=== PATIENT | male | born 1965 | race Caucasian/White ===

== ENCOUNTER 2024-01-26 09:04 | Outpatient (AMB) | payer OTHER, SELFPAY ==
--- NOTE | 2024-01-26 09:05 | A.OFFPC_ITS ---
Vital Signs 01/26/24 09:06 Height 5 ft 6 in Weight 284 lb 6 oz BMI 45.9 BP 160/90 H Blood Pressure Location Rt brachial Position Sitting Respiration 13 Pulse 81 Pulse Source Pulse Oximeter Temp 97.5 F Temp Source Temporal Artery Scan Pulse Oximetry (%) 99 Oxygen Delivery Method Room Air Intake Visit Reasons: New patient-requesting physical Certified Nurses' Aide Required: No Accompanied by: Self / Same As Patient Allergies No Known Allergies Allergy (Verified 01/26/24 09:35) Medication List - Last Reconciled 01/26/24 by Vin Hernandez CNP atorvastatin 80 mg PO DAILY ezetimibe 10 mg PO DAILY hydrochlorothiazide 12.5 mg PO DAILY lisinopril 40 mg PO DAILY meloxicam 15 mg PO DAILY Tobacco use date assessed: 01/26/24 Dental Screening Dental Screen Date: 01/26/24 Did you have a dental visit in the last 12 months?: Yes Did you have a dental problem in the last 6 months where you did not have access to dental care?: No Was dental information given to patient?: Patient has dentist HPI HPI Comments History of Present Illness Details New patient Prior PCP:?Dr Moisés Marrero () Last office visit/CPE: About 2.5 years Acute issue(s): Hypertension -He was on HCTZ 12mg daily and lisinopr il 40mg daily until 2 years ago when he ran out of the medications HLD -He was on ezetimibe 10mg daily and ator vastatin 80mg daily until the last 2 years after he ran out of the medications. He reports severe pain to his BLE while he was on atorvastatin Anxiety -He is not on medication. He has never b een on psychotropic medication Reports onset of panic attacks in the past 2 years; he has never been evaluated or diagnosed. He notes that he gets panic in crowds or closed spaces Chronic right knee pain -Was on meloxicam 15mg daily until his p rescription ran out 2 weeks ago. He notes pain to the right knee with walking He reports history of low testosterone levels for which was monitored and treated with testosterone injections by his former PCP He notes that he started physical exercise this week and plans on exercising at least 3 days weekly. He notes that his diet is not good, he eats pasta, red meat, crap. Hes states that his last A1c was done about 2.5 years ago PMHx: HTN, HLD, anxiety, chronic left knee pain, low testosterone SurgHx: Left total knee replacement 3 years ago FHx: Brother: Prostate cancer SocHx: Nonsmoker. Drinks 4- 6 beers weekly. No recreational drugs. 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 1. Little interest or pleasure in doing things: not at all 2. Feeling down, depressed, or hopeless: not at all 3. Trouble falling or staying asleep, or sleeping too much: not at all 4. Feeling tired or having little energy: not at all 5. Poor appetite or overeating: several days 6. Feeling bad about yourself - or that you are a failure or have let yourself or your family down: not at all 7. Trouble concentrating on things, such as reading the newspaper or watching television: not at all 8. Moving or speaking so slowly that other people could have noticed. Or the opposite - being so fidgety or restless that you have been moving around a lot more than usual: not at all 9. Thoughts that you would be better off or of hurting yourself in some way: not at all Total score: 1 Depression Screening Interpretation: Negative Depression Screening Done: Yes 26423 - PHQ-9 Billing: Yes Source: Developed by Drs. Chato Rose, Darcie Edmond, Henri Luke and colleagues, with an educational hodan from [employer] Thrive Questionnaire Date Thrive assessed: 01/26/24 I am a: Patient What is your living situation today?: I have a steady place to live Within the past 12 months, did the food you bought not last and you didn't have the money to get more?: Never true Within the past 12 months, did you worry whether your food would run out before you got money to buy more?: Never true Do you have trouble paying for medicines?: No Do you have trouble getting transportation to medical appointments?: No Do you have trouble paying your heating and electricity bill?: No Do you have trouble taking care of your child, family member or friend?: No Do you have trouble with day-to-day activities such as bathing, preparing meals, shopping, managing finances, etc.?: No Are you currently unemployed and looking for a job?: No Are you interested in more education?: No Please select the resources that you would like help with: None Currently or been in a relationship where the following occur: no concerns reported THRIVE Score: 0 AUDIT C Alcohol Use Questionnaire (AUDIT-C) 1. How often do you have a drink containing alcohol?: 4 or more times a week 2. How many drinks containing alcohol do you have on a typical day when you are drinking?: 1 or 2 3. How often do you have six or more drinks on one occasion?: Never Total Score: 4 JANICE-7 AMB Questionnaire JANICE-7 Date JANICE - 7 assessed: 01/26/24 Feeling nervous, anxious, or on edge: 1 = Several days Not being able to stop or control worryin = Not at all Worrying too much about different things: 0 = Not at all Trouble relaxin = Not at all Being so restless that it is hard to sit still: 0 = Not at all Becoming easily annoyed or irritable: 0 = Not at all Feeling afraid as if something awful might happen: 0 = Not at all Total JANICE-7 score (0-4 normal; 5-9 mild; 10-14 moderate; 15-21 severe): 1 Source: Developed by Drs. Chato Rose, Darcie Edmond, Henri Luke and colleagues, with an educational hodan from [employer] JANICE-7 Assessment Billing JANICE-7 Assessment Tool: JANICE-7 Assessment 41591 Review of Systems Const Details: Const Denies chills, Denies fatigue, Denies fever(s), Denies headache(s) and Denies weakness ENT Denies dizziness and Denies headache(s) Card Denies chest pain, Denies lightheadedness, Denies dyspnea and Denies other (Palpitations) Resp Denies cough, Denies dyspnea, Denies wheezing and Denies other ( shortness of breath) GI Denies abdominal pain, Denies melena, Denies hematochezia, Denies change in bowel habits, Denies dyspepsia and Denies nausea Denies hematuria and Denies dysuria Musc Reports chronic left knee pain, Denies abnormal gait, Denies numbness and Denies tingling Skin/Breast Denies rash, Denies unusual bruising and Denies wounds Neuro Denies abnormal gait, Denies dizziness, Denies headache(s), Denies memory loss, Denies numbness, Denies Sensory deficit (Neuro), Denies tingling and Denies weakness Psych Denies anxiety, Denies depression, Denies memory loss Endo Denies cold intolerance, Denies fatigue, Denies heat intolerance, Denies polydipsia and Denies polyuria Aller/Immun Denies wheezing Physical exam (Primary Care) Vital Signs: Last Vital Signs Temp 97.5 F 01/26/24 09:06 Pulse 81 01/26/24 09:06 Resp 13 01/26/24 09:06 BP 160/90 H 01/26/24 09:06 Pulse Ox 99 01/26/24 09:06 Oxygen Delivery Method Room Air 01/26/24 09:06 BMI result Body Mass Index 45.9 Tobacco/Smoking Status: Tobacco use Status Tobacco use date assessed 01/26/24 01/26/24 09:12 Patient Tobacco Use Status Never used Tobacco 01/26/24 09:12 e-Cigarette/Vaping Use Never Used 01/26/24 09:12 PHQ-9: PHQ-9 Score PHQ-9: Total score 1 01/26/24 09:54 Depression Screening Interpretation: Negative Thrive Assessment: Date of Thrive Assessment Date Thrive assessed 01/26/24 01/26/24 09:20 Currently or been in a relationship where the following occur: no concerns reported Const Other: General: no acute distress and well developed Nutritional Appearance: well nourished Orientation/consciousness: patient oriented x3 [facility] Head: Yes normocephalic and Yes atraumatic Eyes General: appearance normal, both eyes and all related structures Pupils: Equal, round and reactive pupils present EOM: EOMs intact bilaterally Resp Effort & Inspection: normal respiratory effort Auscultation: clear to auscultation bilaterally Cardio Rate: regular rate Rhythm: regular rhythm Heart sounds: S1 normal heart sound present, S2 normal heart sound present, no gallops, no murmurs and no rubs GI Palpation (GI): No Abdominal aortic bruit present, Soft to palpation, nontender, No hepatosplenomegaly present and No Rebound tenderness present Auscultation: normal bowel sounds General: Yes no CVA tenderness Back/Spine/Pelvis Back: no CVA tenderness Cervical Spine: cervical ROM normal and No Cervical spine tenderness Thoracic/Lumbar Spine: thoraco-lumbar ROM normal, No pain with thoraco-lumbar ROM, No thoracic spinal tenderness and No lumbar spinal tenderness Extrem General: Yes normal to inspection, No edema and No calf tenderness Skin General: warm and dry. Normal skin color. Normal skin turgor Neuro General: patient oriented x3, gait normal and no focal neuro deficit Cranial nerves: Yes Equal, round and reactive pupils present Cognition (Neuro): normal cognition Gait exam (Neuro): Normal gait present Sensory Exam: No Sensory deficit (Neuro) Psych Appearance: grossly normal Affect: normal affect Attitude: cooperative Thought process: Normal thought process present Assessment and Plan Assessment & Plan (1) High blood pressure: Code(s): I10 - Essential (primary) hypertension Plan: Resting blood pressure is 160/90, above goal of less than 140/90 Will start lisinopril 20 mg daily. Take as prescribed Low-sodium diet and routine exercise encouraged Follow-up in 1 week with the nurse for blood pressure check Follow-up with PCP in 2 weeks Return sooner with symptoms or concerns Verbalized understanding and agreed with treatment plan (2) Hyperlipidemia: Code(s): E78.5 - Hyperlipidemia, unspecified Plan: He has not gotten blood work done in the past 2 and half years Will check lipid panel and make changes as needed Advised to limit foods high in saturated fat and avoid foods high in trans fat Routine exercise encouraged Verbalized understanding and agreed with the plan (3) Anxiety: Code(s): F41.9 - Anxiety disorder, unspecified Plan: Reports onset of panic attacks in the past 2 years; he has never been evaluated or diagnosed. He notes that he gets panic in crowds or closed spaces PHQ-9 and JANICE-7 scores are normal Will trial hydroxyzine 25 mg 3 times daily. Take as prescribed Routine exercise encouraged Follow-up with worsening or new symptoms Verbalized understanding and agreed with treatment plan (4) Chronic pain of right knee: Code(s): M25.561 - Pain in right knee; G89.29 - Other chronic pain Plan: Reports chronic right knee pain for which he took naproxen until he ran out 2 weeks ago Naproxen 500 mg twice daily as needed ordered. Take as prescribed in with food Follow-up with worsening or new symptoms Verbalized understanding and agreed with treatment plan (5) Morbid obesity with BMI of 45.0-49.9, adult: Code(s): E66.01 - Morbid (severe) obesity due to excess calories; Z68.42 - Body mass index [BMI] 45.0-49.9, adult Plan: He currently weighs 284 lb, BMI is 45.9 He started physical exercise this week and plans on exercising at least 3 days weekly He declines referral to online merchandiser or weight management at this time. He will continue physical exercise and start making dietary changes Healthy diet and routine exercise encouraged Follow-up with symptoms or concerns Verbalized understanding and agreed with the plan (6) Low testosterone: Code(s): R79.89 - Other specified abnormal findings of blood chemistry Plan: He reports history of low testosterone levels which was monitored and treated by his former PCP Will check testosterone level and make changes as needed (7) Laboratory tests ordered as part of a complete physical exam (CPE): Code(s): Z00.00 - Encounter for general adult medical examination without abnormal findings Plan: Fasting labs ordered in preparation of a complete physical exam. Advised to fast for at least 10 hours before getting labs drawn. May drink water Verbalized understanding and agreed with treatment plan. Orders: Orders Complete Blood Count Auto Diff Today Z00.00 - Encounter for general adult medical examination without abnormal findings Lipid Panel Today Z00.00 - Encounter for general adult medical examination without abnormal findings TSH reflex Free T4 Today Z00.00 - Encounter for general adult medical examination without abnormal findings UA CC w/rflx Micro + Cult Today Z00.00 - Encounter for general adult medical examination without abnormal findings Comprehensive [place]. Panel Fast Today Z00.00 - Encounter for general adult medical examination without abnormal findings PSA, Ultra Sensitive Today Z00.00 - Encounter for general adult medical examination without abnormal findings Testosterone, Free/Total Today R79.89 - Other specified abnormal findings of blood chemistry Medications: New naproxen 500 mg PO BID PRN 60 tabs 3RF pain hydroxyzine HCl 25 mg PO TID PRN 90 tabs 1RF anxiety 30 days lisinopril 20 mg PO DAILY 30 tabs 3RF 30 days Coding Level of Care Code New Pt Level 4 (23857) Diagnoses High blood pressure I10 Hyperlipidemia E78.5 Anxiety F41.9 Chronic pain of right knee M25.561; G89.29 Morbid obesity with BMI of 45.0-49.9, adult E66.01; Z68.42 Low testosterone R79.89 Laboratory tests ordered as part of a complete physical exam (CPE) Z00.00 Additional Codes JANICE-7 Assessment Billing - JANICE-7 Assessment Tool: JANICE-7 Assessment [id number] ([id number])
[2024-01-26 09:06] VITALS: BP 160/90; PULSE 81; RESP 13; TEMP 36.4; O2SAT 99; BMI 45.9
== END 2024-01-26 10:14 | disposition home or self-care (01) ==
PROVIDERS: PCP Nurse Practitioner Family; Visit Provider Nurse Practitioner Family
DX: I10 Essential (primary) hypertension (principal); E78.5 Hyperlipidemia, unspecified; E66.01 Morbid (severe) obesity due to excess calories; Z68.42 Body mass index [BMI] 45.0-49.9, adult; F41.9 Anxiety disorder, unspecified; M25.561 Pain in right knee; G89.29 Other chronic pain; R79.89 Other specified abnormal findings of blood chemistry
CPT/HCPCS: 96127; 99204

== ENCOUNTER 2024-01-26 10:14 | Outpatient (REF) | payer OTHER, SELFPAY ==
[2024-01-26 15:08] LABS: MANUAL DIFF FLAG NO
[2024-01-26 15:19] LABS: Basophils Percent Auto 0.3 % (0-2); Eosinophils Absolute Auto 0.1 X10*3/uL (0.0-0.4); Eosinophils Percent Auto 0.8 % (0-4); Hematocrit 49.1 % (42.0-52.0); Hemoglobin 16.9 g/dl (14.0-18.0); Imm Gran Abs Auto 0.02 X10*3/uL (0.00-0.03); Imm Gran Pct Auto 0.3 % (0.0-0.4); Lymphocytes Absolute Auto 1.5 X10*3/uL (1.2-4.9); Lymphocytes Percent Auto 22.7 % (20-40); Mean Corpuscular HGB Conc 34.4 g/dl (31.0-36.0); Mean Corpuscular Hemoglobin 29.1 pg (27.0-33.0); Mean Corpuscular Volume 84.7 fL (80.0-98.0); Monocytes Absolute Auto 0.5 X10*3/uL (0.1-1.2); Monocytes Percent Auto 7.8 % (2-11); Neutrophils Absolute Auto 4.5 x10*3/uL (2.0-8.3); Neutrophils Percent Auto 68.1 % (45-73); Platelet Count 316 X10*3/uL (160-400); White Blood Count 6.7 X10*3/uL (4.8-10.8)
[2024-01-26 15:22] LABS: Appearance Urine Clear; Color Urine Yellow; Glucose Urine UA Negative (Negative); Leukocyte Esterase Urine Trace (Negative); Nitrite Urine Negative (Negative); UMIC TRIGGER UACC YES; Urine Blood Small (1+) (Negative); Urine Ketones Negative (Negative); Urine Protein Negative (Neg-Trace)
[2024-01-26 15:27] LABS: Bacteria Urine None Seen (None Seen); Hyaline Casts Urine 0-2 /LPF (0-2); Squamous Epithelial Cell Urine 0-2 /HPF (0-2); WBC Urine 0-5 /HPF (0-5)
[2024-01-26 15:58] LABS: Alanine Aminotransferase 25 U/L (0-40); Albumin Level 4.4 g/dL (3.5-5.0); Alkaline Phosphatase 89 U/L (39-117); Anion Gap 11 (12-20); Aspartate Amino Transferase 19 U/L (5-37); Bilirubin Total 0.6 mg/dL (0.0-1.0); Blood Urea Nitrogen 13 mg/dL (9-16); Calcium 9.6 mg/dL (8.4-10.2); Carbon Dioxide 28 mmol/L (22-29); Chloride 105 mmol/L (96-108); Cholesterol 239 mg/dL (<200); Estimated Glomerular Filt Rate > 60; Glucose Fasting 81 mg/dL (60-99); HDL Cholesterol 40 mg/dL (>40); LDL Cholesterol Calculated 171 mg/dL (<100); Potassium 4.1 mmol/L (3.3-5.1); Sodium 140 mmol/L (135-145); Total Protein 7.4 g/dL (6.5-8.0); Triglycerides 141 mg/dL (<150)
[2024-01-26 16:06] LABS: TSH reflex Free T4 1.25 uIU/mL (0.32-4.0)
[2024-02-02 12:38] LABS: Testosterone, Free 68.3 pg/mL (35.0-155.0); Testosterone, Total 352 ng/dL (250-1100)
== END 2024-01-26 10:15 | disposition home or self-care (01) ==
LOC: HO.WFDLDS 10:14
PROVIDERS: Visit Provider Nurse Practitioner Family
DX: Z00.00 Encounter for general adult medical examination without abnormal findings (principal); Z12.5 Encounter for screening for malignant neoplasm of prostate; R79.89 Other specified abnormal findings of blood chemistry
CPT/HCPCS: 36415; 80053; 80061; 81001; 84153; 84402; 84403; 84443; 85025

== ENCOUNTER 2024-02-12 14:33 | Outpatient (AMB) | payer OTHER, SELFPAY ==
--- NOTE | 2024-02-12 14:42 | A.OFFPC_ITS ---
Vital Signs 02/12/24 14:47 02/12/24 15:08 Height 5 ft 6 in Weight 288 lb BMI 46.5 BP 164/80 H 160/90 H Blood Pressure Location Rt brachial Rt brachial Position Sitting Sitting Respiration 13 Pulse 78 64 Pulse Source Pulse Oximeter Auscultation Temp 97.4 F Temp Source Temporal Artery Scan Pulse Oximetry (%) 98 Oxygen Delivery Method Room Air Intake Visit Reasons: 2 week follow up [employer] Director Required: No Accompanied by: Self / Same As Patient Allergies No Known Allergies Allergy (Verified 02/12/24 15:04) Medication List - Last Reconciled 02/12/24 by Vin Hernandez CNP hydroxyzine HCl 25 mg PO TID PRN 30 days lisinopril 40 mg PO DAILY 30 days naproxen 500 mg PO BID PRN Tobacco use date assessed: 01/26/24 Dental Screening Dental Screen Date: 02/12/24 Did you have a dental visit in the last 12 months?: Yes Did you have a dental problem in the last 6 months where you did not have access to dental care?: No Was dental information given to patient?: Patient has dentist HPI HPI Comments History of Present Illness Details 58-year-old male presents for hypertensi on, anxiety, and review recent blood work follow-up He established care about 2 weeks ago. He was started on lisinopril 20 mg daily (later increased to 40 mg daily), hydroxyzine 25 mg t.i.d. p.r.n., and naproxen 500 mg b.i.d. 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 1. Little interest or pleasure in doing things: not at all 2. Feeling down, depressed, or hopeless: not at all 3. Trouble falling or staying asleep, or sleeping too much: not at all 4. Feeling tired or having little energy: not at all 5. Poor appetite or overeating: several days 6. Feeling bad about yourself - or that you are a failure or have let yourself or your family down: not at all 7. Trouble concentrating on things, such as reading the newspaper or watching television: not at all 8. Moving or speaking so slowly that other people could have noticed. Or the opposite - being so fidgety or restless that you have been moving around a lot more than usual: not at all 9. Thoughts that you would be better off or of hurting yourself in some way: not at all Total score: 1 Depression Screening Interpretation: Negative Depression Screening Done: Yes 45758 - PHQ-9 Billing: Yes Source: Developed by Drs. Chato Rose, Darcie Edmond, Henri Luke and colleagues, with an educational hodan from [employer] E[employer]. Thrive Questionnaire Date Thrive assessed: 01/26/24 JANICE-7 AMB Questionnaire JANICE-7 Date JANICE - 7 assessed: 02/12/24 Feeling nervous, anxious, or on edge: 0 = Not at all Not being able to stop or control worryin = Not at all Worrying too much about different things: 0 = Not at all Trouble relaxin = Not at all Being so restless that it is hard to sit still: 0 = Not at all Becoming easily annoyed or irritable: 0 = Not at all Feeling afraid as if something awful might happen: 0 = Not at all Total JANCIE-7 score (0-4 normal; 5-9 mild; 10-14 moderate; 15-21 severe): 0 Source: Developed by Drs. Chato Rose, Henri Booth and colleagues, with an educational hodan from [employer] [employer]. JANICE-7 Assessment Billing JANICE-7 Assessment Tool: JANICE-7 Assessment 25391 Review of Systems Const Details: Const Denies chills, Denies fatigue, Denies fever(s), Denies headache(s) and Denies weakness ENT Denies dizziness and Denies headache(s) Card Denies chest pain, Denies lightheadedness, Denies dyspnea and Denies other (Palpitations) Resp Denies cough, Denies dyspnea, Denies wheezing and Denies other ( shortness of breath) GI Denies abdominal pain, Denies melena, Denies hematochezia, Denies change in bowel habits, Denies dyspepsia and Denies nausea Denies hematuria and Denies dysuria Musc Denies abnormal gait, Denies myalgias, Denies arthralgias, Denies numbness and Denies tingling Skin/Breast Denies rash, Denies unusual bruising and Denies wounds Neuro Denies abnormal gait, Denies dizziness, Denies headache(s), Denies memory loss, Denies numbness, Denies Sensory deficit (Neuro), Denies tingling and Denies weakness Psych Denies anxiety, Denies depression, Denies memory loss Endo Denies cold intolerance, Denies fatigue, Denies heat intolerance, Denies polydipsia and Denies polyuria Aller/Immun Denies wheezing Physical exam (Primary Care) Tobacco/Smoking Status: Tobacco use Status Tobacco use date assessed 01/26/24 02/12/24 14:42 Patient Tobacco Use Status Never used Tobacco 02/12/24 14:42 e-Cigarette/Vaping Use Never Used 02/12/24 14:42 Depression Screening Interpretation: Negative Thrive Assessment: Date of Thrive Assessment Date Thrive assessed 01/26/24 02/12/24 14:42 Const Other: General: no acute distress and well developed Nutritional Appearance: well nourished Orientation/consciousness: patient oriented x3 [facility] Head: Yes normocephalic and Yes atraumatic Eyes General: appearance normal, both eyes and all related structures Pupils: Equal, round and reactive pupils present EOM: EOMs intact bilaterally Resp Effort & Inspection: normal respiratory effort Auscultation: clear to auscultation bilaterally Cardio Rate: regular rate Rhythm: regular rhythm Heart sounds: S1 normal heart sound present, S2 normal heart sound present, no gallops, no murmurs and no rubs GI Palpation (GI): No Abdominal aortic bruit present, Soft to palpation, nontender, No hepatosplenomegaly present and No Rebound tenderness present Auscultation: normal bowel sounds General: Yes no CVA tenderness Back/Spine/Pelvis Back: no CVA tenderness Cervical Spine: cervical ROM normal and No Cervical spine tenderness Thoracic/Lumbar Spine: thoraco-lumbar ROM normal, No pain with thoraco-lumbar ROM, No thoracic spinal tenderness and No lumbar spinal tenderness Extrem General: Yes normal to inspection, No edema and No calf tenderness Skin General: warm and dry. Normal skin color. Normal skin turgor Neuro General: patient oriented x3, gait normal and no focal neuro deficit Cranial nerves: Yes Equal, round and reactive pupils present Cognition (Neuro): normal cognition Gait exam (Neuro): Normal gait present Sensory Exam: No Sensory deficit (Neuro) Psych Appearance: grossly normal Affect: normal affect Attitude: cooperative Thought process: Normal thought process present Assessment and Plan Assessment & Plan (1) High blood pressure: Code(s): I10 - Essential (primary) hypertension Plan: Resting blood pressure is 160/90, above goal of less than 140/90 Will start amlodipine 2.5 mg daily. Take as prescribed Continue to take lisinopril 40 mg daily Low-sodium diet encouraged Follow-up in 2 weeks with the nurse for blood pressure check and with PCP in 3 weeks Return sooner with symptoms or concerns Verbalized understanding and agreed with treatment plan (2) Anxiety: Code(s): F41.9 - Anxiety disorder, unspecified Plan: Reports significant improvement on current treatment regimen PHQ-9 and JANICE-7 scores are normal Continue to take hydroxyzine as prescribed Routine exercise encouraged Follow-up with symptoms or concerns Verbalized understanding and agreed with the treatment plan (3) Hyperlipidemia: Code(s): E78.5 - Hyperlipidemia, unspecified Plan: Recent labs/urinalysis reviewed with the patient Unremarkable findings except for elevated cholesterol and LDL, and low HDL, 239, 171, and 40 respectively He does not want medication treatment at this time. He notes he had adverse re action to atorvastatin He will try diet and exercise before considering medications Advised to limit foods high in saturated fat and avoid foods high in trans fat Routine exercise encouraged Will recheck lipid panel in 3 months Verbalized understanding and agreed with treatment plan Medications: New amlodipine 2.5 mg PO DAILY 30 days 30 tabs 3RF Coding Level of Care Code Est Pt Level 3 (31880) Diagnoses High blood pressure I10 Anxiety F41.9 Hyperlipidemia E78.5 Additional Codes JANICE-7 Assessment Billing - JANICE-7 Assessment Tool: JANICE-7 Assessment [id number] ([id number])
[2024-02-12 14:47] VITALS: BP 164/80; PULSE 78; RESP 13; TEMP 36.3; O2SAT 98; BMI 46.5
[2024-02-12 15:08] VITALS: BP 160/90; PULSE 64
== END 2024-02-12 15:42 | disposition home or self-care (01) ==
PROVIDERS: PCP Nurse Practitioner Family; Visit Provider Nurse Practitioner Family
DX: I10 Essential (primary) hypertension (principal); F41.9 Anxiety disorder, unspecified; E78.5 Hyperlipidemia, unspecified
CPT/HCPCS: 99213

== ENCOUNTER 2024-03-18 16:53 | Outpatient (AMB) | payer OTHER, SELFPAY ==
--- NOTE | 2024-03-18 16:57 | MHC.PC.OV ---
Vital Signs 03/18/24 17:00 Height 5 ft 6 in Weight 286 lb 4 oz BMI 46.2 BP 138/78 Blood Pressure Location Rt brachial Position Sitting Respiration 13 Pulse 75 Pulse Source Pulse Oximeter Temp 97.5 F Temp Source Temporal Artery Scan Pulse Oximetry (%) 98 Oxygen Delivery Method Room Air Intake Visit Reasons: blood pressure check Host/Hostess Required: No Accompanied by: Self / Same As Patient Allergies Seasonal Allergies Allergy (Severe, Verified 03/18/24 17:20) Itchy Eyes Medication List - Last Reconciled 03/18/24 by Vin Hernandez CNP amlodipine 2.5 mg PO DAILY 30 days hydroxyzine HCl 25 mg PO TID PRN 30 days lisinopril 40 mg PO DAILY 30 days naproxen 500 mg PO BID PRN Tobacco use date assessed: 01/26/24 Dental Screening Dental Screen Date: 02/12/24 HPI HPI Comments History of Present Illness Details 58-year-old male present for diabetes follow-up He admits to taking his medications as prescribed without adverse reactions He reports control anxiety symptoms and notes that he has not required to take hydroxyzine for the past 3 weeks He notes that meloxicam was more effective than naproxen for his right knee pain. 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 Chato Rose, Darcie Edmond, Henri Luke and colleagues, with an educational hodan from [employer]. Review of Systems Const Details: Const Denies chills, Denies fatigue, Denies fever(s), Denies headache(s) and Denies weakness ENT Denies dizziness and Denies headache(s) Card Denies chest pain, Denies lightheadedness, Denies dyspnea and Denies other (Palpitations) Resp Denies cough, Denies dyspnea, Denies wheezing and Denies other ( shortness of breath) GI Denies abdominal pain, Denies melena, Denies hematochezia, Denies change in bowel habits, Denies dyspepsia and Denies nausea Denies hematuria and Denies dysuria Musc Denies abnormal gait, Denies myalgias, Denies arthralgias, Denies numbness and Denies tingling Skin/Breast Denies rash, Denies unusual bruising and Denies wounds Neuro Denies abnormal gait, Denies dizziness, Denies headache(s), Denies memory loss, Denies numbness, Denies Sensory deficit (Neuro), Denies tingling and Denies weakness Psych Denies anxiety, Denies depression, Denies memory loss Endo Denies cold intolerance, Denies fatigue, Denies heat intolerance, Denies polydipsia and Denies polyuria Aller/Immun Denies wheezing Physical exam (Primary Care) Vital Signs: Last Vital Signs Temp 97.5 F 03/18/24 17:00 Pulse 75 03/18/24 17:00 Resp 13 03/18/24 17:00 BP 138/78 03/18/24 17:00 Pulse Ox 98 03/18/24 17:00 Oxygen Delivery Method Room Air 03/18/24 17:00 BMI result Body Mass Index 46.2 Tobacco/Smoking Status: Tobacco use Status Tobacco use date assessed 01/26/24 03/18/24 16:58 Patient Tobacco Use Status Never used Tobacco 03/18/24 16:58 e-Cigarette/Vaping Use Never Used 03/18/24 16:58 Thrive Assessment: Date of Thrive Assessment Date Thrive assessed 01/26/24 03/18/24 16:58 Const Other: General: no acute distress and well developed Nutritional Appearance: well nourished Orientation/consciousness: patient oriented x3 HENMT Head: Yes normocephalic and Yes atraumatic Eyes General: appearance normal, both eyes and all related structures Pupils: Equal, round and reactive pupils present EOM: EOMs intact bilaterally Resp Effort & Inspection: normal respiratory effort Auscultation: clear to auscultation bilaterally Cardio Rate: regular rate Rhythm: regular rhythm Heart sounds: S1 normal heart sound present, S2 normal heart sound present, no gallops, no murmurs and no rubs GI Palpation (GI): No Abdominal aortic bruit present, Soft to palpation, nontender, No hepatosplenomegaly present and No Rebound tenderness present Auscultation: normal bowel sounds General: Yes no CVA tenderness Back/Spine/Pelvis Back: no CVA tenderness Cervical Spine: cervical ROM normal and No Cervical spine tenderness Thoracic/Lumbar Spine: thoraco-lumbar ROM normal, No pain with thoraco-lumbar ROM, No thoracic spinal tenderness and No lumbar spinal tenderness Extrem General: Yes normal to inspection, No edema and No calf tenderness Skin General: warm and dry. Normal skin color. Normal skin turgor Neuro General: patient oriented x3, gait normal and no focal neuro deficit Cranial nerves: Yes Equal, round and reactive pupils present Cognition (Neuro): normal cognition Gait exam (Neuro): Normal gait present Sensory Exam: No Sensory deficit (Neuro) Psych Appearance: grossly normal Affect: normal affect Attitude: cooperative Thought process: Normal thought process present Assessment and Plan Assessment & Plan (1) High blood pressure: Code(s): I10 - Essential (primary) hypertension Plan: Resting blood pressure is 138/78, within goal of less than 140/90 Will increase amlodipine to 5 mg daily. Take as prescribed Continue to take lisinopril as prescribed Low-sodium diet and routine exercise encouraged Advised to get fasting lipid panel blood work done before his next visit Follow-up in 2 months for an extended physical exam and hyperlipidemia or return sooner with symptoms or concerns Verbalized understanding and agreed with treatment plan (2) Anxiety: Code(s): F41.9 - Anxiety disorder, unspecified Plan: Controlled Hydroxyzine as prescribed Follow-up with symptoms or concerns Verbalized understanding and agreed with the plan Orders: Orders Lipid Panel 2 Months E78.5 - Hyperlipidemia, unspecified Medications: New amlodipine 5 mg PO DAILY 30 days 30 tabs 3RF Changed From meloxicam 15 mg PO DAILY To meloxicam 15 mg PO DAILY 30 days 30 tabs 3RF Discontinued naproxen Discontinued Reason: Doctor's Order 500 mg PO BID PRN 60 tabs 3RF pain amlodipine Discontinued Reason: Doctor's Order 2.5 mg PO DAILY 30 days 30 tabs 3RF Coding Level of Care Code Est Pt Level 4 (74359) Complex EM visit Add On G2211 Diagnoses High blood pressure I10 Anxiety F41.9
[2024-03-18 17:00] VITALS: BP 138/78; PULSE 75; RESP 13; TEMP 36.4; O2SAT 98; BMI 46.2
== END 2024-03-18 17:33 | disposition home or self-care (01) ==
PROVIDERS: PCP Nurse Practitioner Family; Visit Provider Nurse Practitioner Family
DX: I10 Essential (primary) hypertension (principal); F41.9 Anxiety disorder, unspecified
CPT/HCPCS: 99214; G2211

== ENCOUNTER 2024-04-25 14:24 | Outpatient (REF) | payer OTHER, SELFPAY ==
[2024-04-25 17:48] LABS: Appearance Urine Clear; Color Urine Yellow; Glucose Urine UA Negative (Negative); Leukocyte Esterase Urine Negative (Negative); Nitrite Urine Negative (Negative); PH 5.5 (5.0-9.0); UMIC TRIGGER UACC YES; Urine Blood Small (1+) (Negative); Urine Ketones Negative (Negative); Urine Protein Negative (Neg-Trace)
[2024-04-25 17:50] LABS: Cholesterol 205 mg/dL (<200); HDL Cholesterol 35 mg/dL (>40); LDL Cholesterol Calculated 146 mg/dL (<100); Triglycerides 121 mg/dL (<150)
[2024-04-25 18:07] LABS: Bacteria Urine None Seen (None Seen); Hyaline Casts Urine 0-2 /LPF (0-2); Squamous Epithelial Cell Urine 0-2 /HPF (0-2); WBC Urine 0-5 /HPF (0-5)
== END 2024-04-25 14:25 | disposition home or self-care (01) ==
LOC: HO.WFDLDS 14:24
PROVIDERS: Visit Provider Nurse Practitioner Family
DX: E78.5 Hyperlipidemia, unspecified (principal)
CPT/HCPCS: 36415; 80061; 81001

== ENCOUNTER 2024-04-29 14:58 | Outpatient (AMB) | payer OTHER, SELFPAY ==
--- NOTE | 2024-04-29 15:00 | A.OFFPC_ITS ---
Vital Signs 04/29/24 15:01 Height 5 ft 6 in Weight 284 lb 2 oz BMI 45.9 BP 128/78 Blood Pressure Location Rt brachial Position Sitting Respiration 14 Pulse 80 Pulse Source Pulse Oximeter Temp 97.5 F Temp Source Temporal Artery Scan Pulse Oximetry (%) 97 Oxygen Delivery Method Room Air Intake Visit Reasons: CPE plus labs Intake Note: Patient needs refill lisinopril and amlodipine. Strategic Account Executive Required: No Accompanied by: Self / Same As Patient Allergies Seasonal Allergies Allergy (Severe, Verified 04/29/24 15:14) Itchy Eyes Medication List - Last Reconciled 04/29/24 by Vin Hernandez CNP amlodipine 5 mg PO DAILY 30 days hydroxyzine HCl 25 mg PO TID PRN 30 days lisinopril 40 mg PO DAILY 30 days meloxicam 15 mg PO DAILY 30 days Tobacco use date assessed: 04/29/24 Dental Screening Dental Screen Date: 04/29/24 Did you have a dental visit in the last 12 months?: Yes Did you have a dental problem in the last 6 months where you did not have access to dental care?: No Was dental information given to patient?: Patient has dentist HPI HPI Comments History of Present Illness Details 58-year-old male presents for an extende d physical exam and hyperlipidemia follow-up He has history of HTN, HLD, anxiety, chronic left knee pain He admits to taking his medication as prescribed without adverse reactions He notes that he joined the gym 3 weeks ago and has been lifting weights twice weekly. He notes that he has not been making healthy dietary changes. He is willing to see a dietitian He reports erectile dysfunction and states that he has not always regular He notes that his last colonoscopy was with [facility] 3 years ago: normal. He notes that he was advised to follow up in 10 days. Will obtain record from [facility] He notes that he is up-to-date on the shingles vaccines Nonsmoker. Drinks 2-3 beers 2-3 times weekly. No recreational drug use [facility] Medical History Anxiety High blood pressure Surgical History History of left knee replacement Family History Family/Other Prostate cancer Social History (Updated 04/29/24 @ 15:09 by GRACIA De Leon) Household Members: Spouse Both parents involved: No Caregiver staying overnight: No Housing: House Are you a primary care management associate to a significant other at home: No 75 years or older and lives alone: No Alcohol intake: current Alcohol intake frequency: a few times a week Alcohol type: beer Patient Tobacco Use Status: Never used Tobacco e-Cigarette/Vaping Use: Never Used service: No Current occupational status: employed 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 1. Little interest or pleasure in doing things: not at all 2. Feeling down, depressed, or hopeless: not at all 3. Trouble falling or staying asleep, or sleeping too much: not at all 4. Feeling tired or having little energy: not at all 5. Poor appetite or overeating: more than half the days 6. Feeling bad about yourself - or that you are a failure or have let yourself or your family down: not at all 7. Trouble concentrating on things, such as reading the newspaper or watching television: not at all 8. Moving or speaking so slowly that other people could have noticed. Or the opposite - being so fidgety or restless that you have been moving around a lot more than usual: not at all 9. Thoughts that you would be better off or of hurting yourself in some way: not at all Total score: 2 Depression Screening Interpretation: Negative Depression Screening Done: Yes [id number] - PHQ-9 Billing: Yes Source: Developed by Drs. Chato Rose, Darcie Edmond, Henri Luke and colleagues, with an educational hodan from [employer]. Thrive Questionnaire Date Thrive assessed: 01/26/24 I am a: Patient What is your living situation today?: I have a steady place to live Within the past 12 months, did the food you bought not last and you didn't have the money to get more?: Never true Within the past 12 months, did you worry whether your food would run out before you got money to buy more?: Never true Do you have trouble paying for medicines?: No Do you have trouble getting transportation to medical appointments?: No Do you have trouble paying your heating and electricity bill?: No Do you have trouble taking care of your child, family member or friend?: No Do you have trouble with day-to-day activities such as bathing, preparing meals, shopping, managing finances, etc.?: No Are you currently unemployed and looking for a job?: No Are you interested in more education?: No Please select the resources that you would like help with: None Currently or been in a relationship where the following occur: no concerns reported THRIVE Score: 0 AUDIT C Alcohol Use Questionnaire (AUDIT-C) 1. How often do you have a drink containing alcohol?: 4 or more times a week 2. How many drinks containing alcohol do you have on a typical day when you are drinking?: 1 or 2 3. How often do you have six or more drinks on one occasion?: Never Total Score: 4 JANICE-7 AMB Questionnaire JANICE-7 Date JANICE - 7 assessed: 04/29/24 Feeling nervous, anxious, or on edge: 0 = Not at all Not being able to stop or control worryin = Not at all Worrying too much about different things: 0 = Not at all Trouble relaxin = Not at all Being so restless that it is hard to sit still: 0 = Not at all Becoming easily annoyed or irritable: 0 = Not at all Feeling afraid as if something awful might happen: 0 = Not at all Total JANICE-7 score (0-4 normal; 5-9 mild; 10-14 moderate; 15-21 severe): 0 Source: Developed by Drs. Chato Rose, Darcie Edmond, Henri Luke and colleagues, with an educational hodan from [employer]. JANICE-7 Assessment Billing JANICE-7 Assessment Tool: JANICE-7 Assessment 29849 Review of Systems Const Details: Denies chills, Denies fatigue, Denies fever(s), Denies headache(s) and Denies weakness HEENT Denies change in vision, Denies dizziness, Denies headache(s), Denies hearing loss, Denies nasal congestion, Denies sinus pain, Denies sinus pressure and Denies sore throat Card Denies chest pain, Denies lightheadedness, Denies dyspnea and Denies other (p alpitations) Resp Denies cough, Denies dyspnea and Denies wheezing GI Denies abdominal pain, Denies melena, Denies hematochezia, Denies change in bowel habits, Denies dyspepsia and Denies nausea Denies hematuria and Denies dysuria Musc Denies abnormal gait, Denies myalgias, Denies arthralgias, Denies numbness and Denies tingling Skin/Breast Denies rash, Denies unusual bruising and Denies wounds Neuro Denies abnormal gait, Denies dizziness, Denies headache(s), Denies memory loss, Denies numbness, Denies Sensory deficit (Neuro), Denies tingling and Denies weakness Psych Denies anxiety, Denies depression and Denies memory loss Endo Denies cold intolerance, Denies fatigue, Denies heat intolerance, Denies polydipsia and Denies polyuria Yuri/Lymph Denies easy bleeding and Denies easy bruising Aller/Immun Denies wheezing Physical exam (Primary Care) Vital Signs: Last Vital Signs Temp 97.5 F 04/29/24 15:01 Pulse 80 04/29/24 15:01 Resp 14 04/29/24 15:01 BP 128/78 04/29/24 15:01 Pulse Ox 97 04/29/24 15:01 Oxygen Delivery Method Room Air 04/29/24 15:01 BMI result Body Mass Index 45.9 Tobacco/Smoking Status: Tobacco use Status Tobacco use date assessed 04/29/24 04/29/24 15:11 Patient Tobacco Use Status Never used Tobacco 04/29/24 15:11 e-Cigarette/Vaping Use Never Used 04/29/24 15:11 PHQ-9: PHQ-9 Score PHQ-9: Total score 2 04/29/24 15:11 Depression Screening Interpretation: Negative Thrive Assessment: Date of Thrive Assessment Date Thrive assessed 01/26/24 04/29/24 15:11 Currently or been in a relationship where the following occur: no concerns reported Const Other: General: no acute distress, well developed, alert and awake Nutritional Appearance: well nourished Orientation/consciousness: patient oriented x3 HENMT Head: Yes normocephalic and Yes atraumatic Ears: hearing grossly normal bilaterally and TM's normal bilaterally General nose exam: Normal external nose present and Normal nares present Mouth: Normal oral and palatal mucosa present and moist mucous membranes Teeth and gingiva: dentition normal Throat: Yes oropharynx normal Eyes Pupils: Equal, round and reactive pupils present and Pupil accommodation reflex normal EOM: EOMs intact bilaterally Neck Neck: Yes normal visual inspection, Yes no lymphadenopathy and Yes trachea midline Thyroid: Thyroid normal Carotids: no bruits Lymphatic: no lymphadenopathy noted Chest Chest palpation & inspection: normal inspection of the chest Resp Effort & Inspection: normal respiratory effort Auscultation: clear to auscultation bilaterally Cardio Rate: regular rate Rhythm: regular rhythm Heart sounds: S1 normal heart sound present, S2 normal heart sound present, no gallops, no murmurs and no rubs Bruits: no abdominal aortic bruits and no carotid bruits GI Palpation (GI): No Abdominal aortic bruit present, Soft to palpation, nontender, No hepatosplenomegaly present and No Rebound tenderness present Auscultation: normal bowel sounds General: Yes no CVA tenderness Back/Spine/Pelvis Back: no CVA tenderness Cervical Spine: cervical ROM normal and No Cervical spine tenderness Thoracic/Lumbar Spine: thoraco-lumbar ROM normal, No pain with thoraco-lumbar ROM, No thoracic spinal tenderness and No lumbar spinal tenderness Skin General: warm and dry. Normal skin color. Normal skin turgor Lesions: no lesions Rashes: no rashes Trauma: no lacerations or abrasions Wounds: no wounds Nails: normal Neuro General: patient oriented x3, gait normal and CN's II-XI intact bilaterally Cranial nerves: Yes Equal, round and reactive pupils present Cognition (Neuro): normal cognition Gait exam (Neuro): Normal gait present Motor exam (neuro): 5/5 motor strength present throughout Sensory Exam: No Sensory deficit (Neuro) Deep tendon reflexes (DTR's): Right patellar reflex intensity grade: 2+ and Left patellar reflex intensity grade: 2+ Extrem General: Yes normal to inspection, No edema and No calf tenderness Psych Appearance: grossly normal Affect: normal affect Attitude: cooperative Thought process: Normal thought process present Assessment and Plan Assessment & Plan (1) Normal physical examination, routine: Code(s): Z00.00 - Encounter for general adult medical examination without abnormal findings Plan: No significant physical restrictions or limitations noted Continue current treatment regimen Healthy diet and routine exercise encouraged Encouraged to limit or stop drinking alcohol Follow-up in 3 months for hypertension and hyperlipidemia or sooner with symptoms or concerns Verbalized understanding and agreed with the treatment plan (2) Hyperlipidemia: Code(s): E78.5 - Hyperlipidemia, unspecified Plan: Marked improvement with recent total cholesterol and LDL but still elevated, 205 and 146 respectively. HDL is slightly low 35 Advised to limit foods high in saturated fat and avoid foods high trans fat Routine exercise encouraged Will recheck lipid panel. Advised to fast for 10-12 hours, may drink water only, and get blood work done before his next visit Follow-up in 3 months Verbalized understanding and agreed with the treatment plan (3) High blood pressure: Code(s): I10 - Essential (primary) hypertension Plan: Blood pressure is 128/78, within goal of less than 140/90 Continue current treatment regimen Low-sodium diet encouraged Follow-up in 3 months Verbalized understanding and agreed with treatment plan (4) Anxiety: Code(s): F41.9 - Anxiety disorder, unspecified Plan: Reports controlled anxiety symptoms. Hydroxyzine has not been required since the first two weeks after it was prescribed PHQ-9 and JANICE-7 scores are normal Hydroxyzine as prescribed Routine exercise encouraged Follow-up with symptoms or concerns Verbalized understanding and agreed with the plan (5) Morbid obesity with BMI of 45.0-49.9, adult: Code(s): E66.01 - Morbid (severe) obesity due to excess calories; Z68.42 - Body mass index [BMI] 45.0-49.9, adult Plan: He currently weighs 284 lb, BMI is 45.9 Healthy diet and routine exercise encouraged [place] [facility] [place] (6) Dry skin: Code(s): L85.3 - Xerosis cutis Plan: Very dry skin noted to his face and arms. He denies using a moisturizer on his body Encouraged to use effective skin moisturizer such as Cetaphil or Lubriderm at least twice daily Return with symptoms or concerns Verbalized understanding and agreed with the plan (7) Erectile dysfunction: Code(s): N52.9 - Male erectile dysfunction, unspecified Plan: Reports erectile dysfunction and states that he has not always regular Referred [place] [facility] [place] Orders: Orders Lipid Panel 3 Months E78.5 - Hyperlipidemia, unspecified Referrals Nutrition/Dietitian Referral E66.01 - Morbid (severe) obesity due to excess calories, Z68.42 - Body mass index [BMI] 45.0-49.9, adult Urology Referral N52.9 - Male erectile dysfunction, unspecified Medications: Refilled lisinopril 40 mg PO DAILY 30 days 30 tabs 3RF amlodipine 5 mg PO DAILY 30 days 30 tabs 3RF Coding Level of Care Code Est Pt Level 4 (20818) Est Pt Prev Care 40-64y(38327) Diagnoses Normal physical examination, routine Z00.00 Hyperlipidemia E78.5 High blood pressure I10 Anxiety F41.9 Morbid obesity with BMI of 45.0-49.9, adult E66.01; Z68.42 Dry skin L85.3 Erectile dysfunction N52.9 Additional Codes JANICE-7 Assessment Billing - JANICE-7 Assessment Tool: JANICE-7 Assessment [id number] ([id number])
[2024-04-29 15:01] VITALS: BP 128/78; PULSE 80; RESP 14; TEMP 36.4; O2SAT 97; BMI 45.9
== END 2024-04-29 15:42 | disposition home or self-care (01) ==
PROVIDERS: PCP Nurse Practitioner Family; Visit Provider Nurse Practitioner Family
DX: Z00.00 Encounter for general adult medical examination without abnormal findings (principal); E66.01 Morbid (severe) obesity due to excess calories; Z68.42 Body mass index [BMI] 45.0-49.9, adult; E78.5 Hyperlipidemia, unspecified; I10 Essential (primary) hypertension; F41.9 Anxiety disorder, unspecified; L85.3 Xerosis cutis; N52.9 Male erectile dysfunction, unspecified
CPT/HCPCS: 99396

== ENCOUNTER 2024-09-16 14:39 | Outpatient (REF) | payer OTHER, SELFPAY | END 2024-09-16 14:40 | disposition home or self-care (01) | LOC: HO.WFDLDS 14:39 | PROVIDERS: Visit Provider Nurse Practitioner Family | DX: Z13.89 Encounter for screening for other disorder (principal) | CPT/HCPCS: 36415 ==

== ENCOUNTER 2024-09-30 12:50 | Outpatient (REF) | payer OTHER, SELFPAY ==
[2024-09-30 14:37] LABS: Cholesterol 220 mg/dL (<200); HDL Cholesterol 36 mg/dL (>40); LDL Cholesterol Calculated 159 mg/dL (<100); Triglycerides 128 mg/dL (<150)
== END 2024-09-30 12:51 | disposition home or self-care (01) ==
LOC: HO.WFDLDS 12:50
PROVIDERS: Visit Provider Nurse Practitioner Family
DX: E78.5 Hyperlipidemia, unspecified (principal)
CPT/HCPCS: 36415; 80061

== ENCOUNTER 2024-10-10 15:02 | Outpatient (AMB) | payer OTHER, SELFPAY ==
--- NOTE | 2024-10-10 15:12 | MHC.PC.OV ---
Vital Signs 10/10/24 15:19 Height 5 ft 6 in Weight 276 lb 6 oz BMI 44.6 BP 120/70 Blood Pressure Location Rt brachial Position Sitting Respiration 16 Pulse 58 Pulse Source Pulse Oximeter Temp 98.3 F Temp Source Oral Pulse Oximetry (%) 92 Oxygen Delivery Method Room Air Intake Visit Reasons: 3 mos HTN, HLD Intake Note: 3 month follow up for htn Allergies Seasonal Allergies Allergy (Severe, Verified 10/10/24 15:31) Itchy Eyes Medication List - Last Reconciled 10/10/24 by iVn Hernandez CNP amlodipine 5 mg PO DAILY 30 days lisinopril 40 mg PO DAILY 30 days meloxicam 15 mg PO DAILY 30 days Tobacco use date assessed: 04/29/24 Dental Screening Dental Screen Date: 04/29/24 HPI HPI Comments History of Present Illness Details The patient is a 59-year-old male presenting with a history of essential hypertension and hyperlipidemia for a follow-up visit. His blood pressure has been managed with amlodipine 5 mg daily and lisinopril 40 mg daily. Recent measurements indicate controlled blood pressure at 120/70 mmHg. The patient denies any issues with current antihypertensive medications. Additionally, there is a concern regarding elevated cholesterol levels. Recent laboratory results show an increase in total cholesterol to 220 mg/dL from 205 mg/dL in April, and LDL cholesterol increased to 159 mg/dL from 146 mg/dL. HDL cholesterol slightly improved from 35 mg/dL to 36 mg/dL, though it remains below the desired threshold of 40 mg/dL. Past interventions include dietary modifications, increased physical activity, and weight loss. The patient has reported a weight loss of 8 pounds since the last visit. He engages in regular activities such as walking and gym visits and follows a low-salt diet. [facility] Medical History Anxiety High blood pressure Surgical History History of left knee replacement Family History Family/Other Prostate cancer Social History (Updated 04/29/24 @ 15:09 by GRACIA De Leon) Household Members: Spouse Both parents involved: No Caregiver staying overnight: No Housing: House Are you a primary primary care sales representative to a significant other at home: No 75 years or older and lives alone: No Alcohol intake: current Alcohol intake frequency: a few times a week Alcohol type: beer Patient Tobacco Use Status: Never used Tobacco e-Cigarette/Vaping Use: Never Used service: No Current occupational status: employed 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 1. Little interest or pleasure in doing things: not at all 2. Feeling down, depressed, or hopeless: not at all 3. Trouble falling or staying asleep, or sleeping too much: not at all 4. Feeling tired or having little energy: not at all 5. Poor appetite or overeating: not at all 6. Feeling bad about yourself - or that you are a failure or have let yourself or your family down: not at all 7. Trouble concentrating on things, such as reading the newspaper or watching television: not at all 8. Moving or speaking so slowly that other people could have noticed. Or the opposite - being so fidgety or restless that you have been moving around a lot more than usual: not at all 9. Thoughts that you would be better off or of hurting yourself in some way: not at all Total score: 0 Depression Screening Interpretation: Negative Depression Screening Done: Yes Source: Developed by Drs. Chato Rose, Darcie Edmond, Henri Luke and colleagues, with an educational hodan from [employer]. Thrive Questionnaire Date Thrive assessed: 10/07/24 I am a: Patient What is your living situation today?: I have a steady place to live Within the past 12 months, did the food you bought not last and you didn't have the money to get more?: Never true Within the past 12 months, did you worry whether your food would run out before you got money to buy more?: Never true Do you have trouble paying for medicines?: No Do you have trouble getting transportation to medical appointments?: No Do you have trouble paying your heating and electricity bill?: No Do you have trouble taking care of your child, family member or friend?: No Do you have trouble with day-to-day activities such as bathing, preparing meals, shopping, managing finances, etc.?: No Are you currently unemployed and looking for a job?: No Are you interested in more education?: No Please select the resources that you would like help with: None Currently or been in a relationship where the following occur: No concerns reported THRIVE Score: 0 AUDIT C Alcohol Use Questionnaire (AUDIT-C) 1. How often do you have a drink containing alcohol?: 2-3 times a week 2. How many drinks containing alcohol do you have on a typical day when you are drinking?: 1 or 2 3. How often do you have six or more drinks on one occasion?: Never Total Score: 3 JANICE-7 AMB Questionnaire JANICE-7 Date JANICE - 7 assessed: 04/29/24 Feeling nervous, anxious, or on edge: 0 = Not at all Not being able to stop or control worryin = Not at all Worrying too much about different things: 0 = Not at all Trouble relaxin = Not at all Being so restless that it is hard to sit still: 0 = Not at all Becoming easily annoyed or irritable: 0 = Not at all Feeling afraid as if something awful might happen: 0 = Not at all Total JANICE-7 score (0-4 normal; 5-9 mild; 10-14 moderate; 15-21 severe): 0 Source: Developed by Drs. Chato Rose, Darcie Edmond, Henri Luke and colleagues, with an educational hodan from [employer]. Review of Systems Const Details: Const Denies chills, Denies fatigue, Denies fever(s), Denies headache(s) and Denies weakness ENT Denies dizziness and Denies headache(s) Card Denies chest pain, Denies lightheadedness, Denies dyspnea and Denies other (Palpitations) Resp Denies cough, Denies dyspnea, Denies wheezing and Denies other ( shortness of breath) GI Denies abdominal pain, Denies melena, Denies hematochezia, Denies change in bowel habits, Denies dyspepsia and Denies nausea Denies hematuria and Denies dysuria Musc Denies abnormal gait, Denies myalgias, Denies arthralgias, Denies numbness and Denies tingling Skin/Breast Denies rash, Denies unusual bruising and Denies wounds Neuro Denies abnormal gait, Denies dizziness, Denies headache(s), Denies memory loss, Denies numbness, Denies Sensory deficit (Neuro), Denies tingling and Denies weakness Psych Denies anxiety, Denies depression, Denies memory loss Endo Denies cold intolerance, Denies fatigue, Denies heat intolerance, Denies polydipsia and Denies polyuria Aller/Immun Denies wheezing Physical exam (Primary Care) Vital Signs: Last Vital Signs Temp 98.3 F 10/10/24 15:19 Pulse 58 10/10/24 15:19 Resp 16 10/10/24 15:19 BP 120/70 10/10/24 15:19 Pulse Ox 92 10/10/24 15:19 Oxygen Delivery Method Room Air 10/10/24 15:19 BMI result Body Mass Index 44.6 Tobacco/Smoking Status: Tobacco use Status Tobacco use date assessed 04/29/24 10/10/24 15:14 Patient Tobacco Use Status Never used Tobacco 10/10/24 15:14 e-Cigarette/Vaping Use Never Used 10/10/24 15:14 PHQ-9: PHQ-9 Score PHQ-9: Total score 0 10/10/24 15:14 Depression Screening Interpretation: Negative Thrive Assessment: Date of Thrive Assessment Date Thrive assessed 10/07/24 10/10/24 15:14 Currently or been in a relationship where the following occur: No concerns reported Const Other: General: no acute distress and well developed Nutritional Appearance: well nourished Orientation/consciousness: patient oriented x3 HENMT Head: Yes normocephalic and Yes atraumatic Eyes General: appearance normal, both eyes and all related structures Pupils: Equal, round and reactive pupils present EOM: EOMs intact bilaterally Resp Effort & Inspection: normal respiratory effort Auscultation: clear to auscultation bilaterally Cardio Rate: regular rate Rhythm: regular rhythm Heart sounds: S1 normal heart sound present, S2 normal heart sound present, no gallops, no murmurs and no rubs GI Palpation (GI): No Abdominal aortic bruit present, Soft to palpation, nontender, No hepatosplenomegaly present and No Rebound tenderness present Auscultation: normal bowel sounds General: Yes no CVA tenderness Back/Spine/Pelvis Back: no CVA tenderness Extrem General: Yes normal to inspection, No edema and No calf tenderness Skin General: warm and dry. Normal skin color. Normal skin turgor Neuro General: patient oriented x3, gait normal and no focal neuro deficit Cranial nerves: Yes Equal, round and reactive pupils present Cognition (Neuro): normal cognition Gait exam (Neuro): Normal gait present Sensory Exam: No Sensory deficit (Neuro) Psych Appearance: grossly normal Affect: normal affect Attitude: cooperative Thought process: Normal thought process present Coding Level of Care Code Est Pt Level 4 (94481) Diagnoses High blood pressure I10 Hyperlipidemia E78.5 Morbid obesity with BMI of 45.0-49.9, adult E66.01; Z68.42 Assessment & Plan Assessment & Plan (1) High blood pressure: Code(s): I10 - Essential (primary) hypertension Category: Medical Plan: Continue current antihypertensive medication regimen. Prescription refills for amlodipine and lisinopril will be adjusted to a 90-day supply pending insurance approval. (2) Hyperlipidemia: Code(s): E78.5 - Hyperlipidemia, unspecified Category: Medical Plan: No introduction of medication at present. Recommend continuation of a low-fat diet, increased exercise, and regular monitoring. Repeat lipid panel ordered prior to the next visit. (3) Morbid obesity with BMI of 45.0-49.9, adult: Code(s): E66.01 - Morbid (severe) obesity due to excess calories; Z68.42 - Body mass index [BMI] 45.0-49.9, adult Category: Medical Plan: Encourage continued participation in physical activities and adherence to dietary modifications. Plan I discussed the importance of maintaining controlled blood pressure and addressed the elevated cholesterol levels with the patient. We reviewed the current medications and agreed to continue the current regimen, noting that the blood pressure is well-managed. I emphasized the role of lifestyle modifications, including dietary changes and increased physical activity, in managing hyperlipidemia and obesity. We acknowledged the slight increase in LDL and discussed its management through continued lifestyle efforts. The patient expressed understanding of the dietary recommendations, particularly in reducing saturated fats from red meats and whole dairy products. I advised to continue with these changes and to repeat the lipid panel before the next appointment in three months. We also discussed the possibility of adjusting the prescription supply to a 90-day duration, acknowledging potential insurance limitations. Orders: Orders Lipid Panel 3 Months E78.5 - Hyperlipidemia, unspecified Medications: Changed From amlodipine 5 mg PO DAILY 30 days 30 tabs 1RF To amlodipine 5 mg PO DAILY 90 days 90 tabs 1RF From lisinopril 40 mg PO DAILY 30 days 30 tabs 1RF To lisinopril 40 mg PO DAILY 90 days 90 tabs 1RF Patient Instructions: - Continue taking amlodipine and lisinopril as prescribed. - Maintain a low-salt diet, reducing intake of saturated fats, red meat, and whole dairy products. - Engage in regular physical activity, such as walking and gym workouts. - Plan for a repeat lipid panel blood work a few days before the next visit, in three months. - Return for follow-up in three months, or sooner if there are any new symptoms or concerns. - Monitor weight changes and continue with efforts for weight reduction. Patient was informed and verbally consented to the use of an ambient scribe for clinic note documentation during this visit.
[2024-10-10 15:19] VITALS: BP 120/70; PULSE 58; RESP 16; TEMP 36.8; O2SAT 92; BMI 44.6
== END 2024-10-10 15:42 | disposition home or self-care (01) ==
PROVIDERS: PCP Nurse Practitioner Family; Visit Provider Nurse Practitioner Family
DX: I10 Essential (primary) hypertension (principal); E78.5 Hyperlipidemia, unspecified; E66.01 Morbid (severe) obesity due to excess calories; Z68.42 Body mass index [BMI] 45.0-49.9, adult

== ENCOUNTER 2024-11-05 15:01 | Outpatient (AMB) | payer OTHER, SELFPAY ==
--- NOTE | 2024-11-05 15:39 | A.OFFVIS_ITS ---
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 Hernandez. He has a past medical history of hypertension and anxiety. He presents to the office today as a new patient for erectile dysfunction. In discussion with the patient today he reports shortly after starting hypertensive medications he started experiencing issues with maintaining and obtaining his erections. When asked he does report being able to obtain erections however feels maintaining erections adequate for penetration to be difficult. He otherwise denies any bothersome urinary issues. In review of patient's chart it appears labs were ordered and these results reviewed with the patient today. Testosterone 02/10 352 Free testosterone 02/10 68.3 PSA 02/10 3.7 We discussed at length potential causes of erectile dysfunction as well as further treatment options and risks and benefits of these treatment options. We discussed lifestyle modifications to assist with erectile dysfunction. When asked he denies urinary urgency, urinary frequency, incontinence, nocturia, hematuria, dysuria, foul smelling urine, changes to urinary stream, flank pain, fever, and or chills. He is happy with his current voiding parameters. In office urinalysis results reviewed with the patient today. He discusses recently signing backup for history of membership as he knows he needs to lose weight. He otherwise offers no other issues or concerns at this time. [facility] Medical History Anxiety High blood pressure Surgical History History of left knee replacement Family History Family/Other Prostate cancer Social History Household Members: Spouse Both parents involved: No Caregiver staying overnight: No Housing: House Are you a primary daycare worker to a significant other at home: No 75 years or older and lives alone: No Alcohol intake: current Alcohol intake frequency: a few times a week Alcohol type: beer Patient Tobacco Use Status: Never used Tobacco e-Cigarette/Vaping Use: Never Used service: No Current occupational status: employed 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 Cognitive needs: No Hearing needs: No Vision needs: No Review of Systems Const All systems reviewed & are unremarkable except as noted in HPI and below Physical Exam Const General: cooperative, healthy appearing, comfortable, no acute distress, well developed, alert and awake Nutritional Appearance: overweight Orientation/consciousness: patient oriented x3 Limitations: no limitations HEENT Head: Yes normal to inspection, Yes normocephalic and Yes atraumatic Ears: hearing grossly normal bilaterally Eyes General: appearance normal, both eyes and all related structures Neck Neck: Yes normal visual inspection and Yes trachea midline Chest Chest palpation & inspection: normal inspection of the chest Resp Effort & Inspection: normal respiratory effort and able to speak in complete sentences Cardio Rate: regular rate GI Inspection: Yes normal to inspection General: Yes no CVA tenderness Back/Spine/Pelvis Back: no CVA tenderness Skin General skin exam: no rashes or lesions noted Neuro General: patient oriented x3 Extrem General: Yes normal to inspection Psych Appearance: grossly normal and well kempt Mental Status: mental status grossly normal Speech and movement: Normal speech and movement present and Clear speech present Affect: normal affect Attitude: cooperative Thought process: Normal thought process present Thought content: Normal thought content present Insight: Fair insight present (Psych) Judgement: Fair judgement present (Psych) Results AMB Urinalysis, Automated UA Leukoctes 0 Carlos/uL Last Edit by Keyonna Bull on 11/05/24 16:00 UA Nitrite Last Edit by Keyonna Bull on 11/05/24 16:00 UA Urobilinogen 0.2 mg/dL Last Edit by Keyonna Bull on 11/05/24 16:00 UA Protein 0 mg/dL Last Edit by Keyonna Bull on 11/05/24 16:00 UA pH 6.0 Last Edit by Keyonna Bull on 11/05/24 16:00 UA Blood 80 Ricki/uL Last Edit by Keyonna Bull on 11/05/24 16:00 UA Specific Glade 1.015 Last Edit by Keyonna Bull on 11/05/24 16:00 UA Ketone Last Edit by Keyonna Bull on 11/05/24 16:00 UA Bilirubin 0 mg/dL Last Edit by Keyonna Bull on 11/05/24 16:00 UA Glucose 0 mg/dL Last Edit by Keyonna Bull on 11/05/24 16:00 Results Reviewed Results Reviewed: Laboratory Last Values Urine pH (Auto) 6.0 11/05/24 15:58 Specific Glade (Auto) 1.015 11/05/24 15:58 Urine Protein (Auto) 0 mg/dL 11/05/24 15:58 Glucose (UA)(Auto) 0 mg/dL 11/05/24 15:58 Urine Blood (Auto) 80 Ricki/uL 11/05/24 15:58 Urine Bilirubin (Auto) 0 mg/dL 11/05/24 15:58 Urine Urobilinogen (Auto) 0.2 mg/dL 11/05/24 15:58 Leukocyte Esterase (Auto) 0 Carlos/uL 11/05/24 15:58 Assessment & Plan Assessment & Plan (1) Erectile dysfunction: Code(s): N52.9 - Male erectile dysfunction, unspecified Category: Medical Plan In office urinalysis results reviewed the patient today; as noted above. Previous testosterone, free testosterone, and PSA results reviewed with the patient today; as noted above. We discussed at length potential causes of erectile dysfunction as well as further treatment options and risks and benefits of these treatment options. Start Cialis 5 mg daily as discussed and prescribed. P.r.n. prescription provided for additional dosing. Will obtain redraw of PSA for further assessment evaluation with no sex the night before, no caffeine morning of, and no heavy lifting 1-2 days prior. He denies any bothersome urinary issues or concerns. Reports be happy with current voiding parameters. We discussed importance of lifestyle modifications to assist with erectile dysfunction as well as overall health and well-being. Follow-up in 3 months with PSA to be completed prior; or sooner with any issues, concerns, and or questions. Orders: Orders Prostate Specific Antigen Today N52.9 - Male erectile dysfunction, unspecified AMB Urinalysis Automated Today Z13.9 - Encounter for screening, unspecified Patient Instructions: The patient had an opportunity to ask questions regarding the treatment plan. All questions were answered. Physical exam, labs, and imaging were discussed and reviewed in detail. As well as risks, benefits, and discussion of treatment choices. No major barriers to understanding were identified. The patient expressed understanding and agreement with the above treatment plan. The patient was made aware they should contact our office by phone for worsening of their current condition, the appearance of new symptoms, or with any questions or concerns. Compliance is encouraged with any medications and follow up testing that is ordered. It is a privilege to be allowed the opportunity to participate in? your urological care.? Again, if you have any questions or concerns If you have any questions or concerns please do not hesitate to contact me. The office is [phone]. This note is constructed using voice recognition software. While every effort has been made to ensure accuracy glass washer errors may have been included. Yours sincerely, SHANNA Adrian Coding Level of Care Code New Pt Level 4 (35159) Diagnoses Erectile dysfunction N52.9
== END 2024-11-05 16:16 | disposition home or self-care (01) ==
PROVIDERS: PCP Nurse Practitioner Family; Visit Provider Nurse Practitioner Family
DX: N52.9 Male erectile dysfunction, unspecified (principal); Z13.9 Encounter for screening, unspecified
CPT/HCPCS: 99204

== ENCOUNTER 2025-01-24 06:11 | Outpatient (REF) | payer OTHER, SELFPAY ==
[2025-01-24 11:32] LABS: Prostate Specific Antigen 5.23 ng/mL (<0.05-4.0)
== END 2025-01-24 06:12 | disposition home or self-care (01) ==
LOC: HO.HMGCLDS 06:11
PROVIDERS: PCP Nurse Practitioner Family; Visit Provider Nurse Practitioner Family
DX: N52.9 Male erectile dysfunction, unspecified (principal); Z12.5 Encounter for screening for malignant neoplasm of prostate
CPT/HCPCS: 36415; 84153

== ENCOUNTER 2025-01-30 12:25 | Outpatient (REF) | payer OTHER, SELFPAY ==
[2025-01-30 16:23] LABS: Appearance Urine Clear; Color Urine Yellow; Glucose Urine UA Negative (Negative); Leukocyte Esterase Urine Negative (Negative); Nitrite Urine Negative (Negative); PH 5.5 (5.0-9.0); UMIC TRIGGER UACC YES; Urine Blood Trace (Negative); Urine Ketones Negative (Negative); Urine Protein Negative (Neg-Trace)
[2025-01-30 16:29] LABS: Bacteria Urine None Seen (None Seen); Hyaline Casts Urine 0-2 /LPF (0-2); Squamous Epithelial Cell Urine 0-2 /HPF (0-2); WBC Urine 0-5 /HPF (0-5)
[2025-01-30 16:34] LABS: Cholesterol 209 mg/dL (<200); HDL Cholesterol 42 mg/dL (>40); LDL Cholesterol Calculated 140 mg/dL (<100); Triglycerides 136 mg/dL (<150)
== END 2025-01-30 12:26 | disposition home or self-care (01) ==
LOC: HO.HMGCLDS 12:25
PROVIDERS: PCP Nurse Practitioner Family; Visit Provider Nurse Practitioner Family
DX: Z00.00 Encounter for general adult medical examination without abnormal findings (principal); E78.5 Hyperlipidemia, unspecified
CPT/HCPCS: 36415; 80061; 81001

== ENCOUNTER 2025-02-03 15:02 | Outpatient (AMB) | payer OTHER, SELFPAY ==
--- NOTE | 2025-02-03 15:03 | A.OFFVIS_ITS ---
Intake Visit Reasons: 3M PSA(set) Intake Note: Patient presents for follow up visit for erectile dysfunction Urology Medications: tadalafil Blood Thinner: none Phone Circuit Operator Required: No Accompanied by: Self / Same As Patient Allergies Seasonal Allergies Allergy (Severe, Verified 02/03/25 15:35) Itchy Eyes Medication List - Last Reconciled 02/03/25 by YADIRA AdrianP- amlodipine 5 mg PO DAILY 90 days lisinopril 40 mg PO DAILY 90 days meloxicam 15 mg PO DAILY 30 days tadalafil (Cialis) 5 mg PO DAILY tadalafil (Cialis) 20 mg PO DAILY PRN HPI Comments Details: Ford is a very pleasant 59-year-old male patient of Dr. Hernandez. He has a past medical history of hypertension and anxiety. He presents to the office today for follow-up. Of note, patient was seen approximately 3 months ago as a new patient for erectile dysfunction at which time he was started on low- dose Cialis and a prescription was provided for p.r.n. dosing prior to sexual activity as well as a PSA was ordered for further assessment evaluation. In discussion with the patient today he reports feeling initially Cialis was helpful however he then was diagnosed with the flu and has been sick over the last 6 weeks and has not been sexually active. Recent PSA results reviewed with the patient today as noted and trended below. We discussed increase in PSA over the last year and potential causes of elevated PSA. He does report family history of prostate cancer and states his brother had prostate cancer. He discusses feeling erectile dysfunction is related to his hypertensive medications as he feels he started experiencing ED shortly after starting hypertensive medications. He otherwise denies any bothersome urinary issues. Testosterone 02/10 352 Free testosterone 02/10 68.3 PSA 02/10 3.7, 04/13 5.2 We discussed at length potential causes of erectile dysfunction as well as further treatment options and risks and benefits of these treatment options. We discussed lifestyle modifications to assist with erectile dysfunction. We discussed obtaining redraw of PSA with no sex the night before, no caffeine morning of, and no heavy lifting 1-2 days prior as well as obtaining retroperitoneal ultrasound for further assessment evaluation. ANN MARIE offered however deferred. When asked he denies urinary urgency, urinary frequency, incontinence, nocturia, hematuria, dysuria, foul smelling urine, changes to uri nary stream, flank pain, fever, and or chills. He is happy with his current voiding parameters. In office urinalysis results reviewed with the patient today. He otherwise offers no other issues or concerns at this time. [facility] Medical History Anxiety High blood pressure Surgical History History of left knee replacement Family History Family/Other Prostate cancer Social History Household Members: Spouse Both parents involved: No Caregiver staying overnight: No Housing: House Are you a primary ocular care technologist to a significant other at home: No 75 years or older and lives alone: No Alcohol intake: current Alcohol intake frequency: a few times a week Alcohol type: beer Patient Tobacco Use Status: Never used Tobacco e-Cigarette/Vaping Use: Never Used service: No Current occupational status: employed 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 Cognitive needs: No Hearing needs: No Vision needs: No Review of Systems Const All systems reviewed & are unremarkable except as noted in HPI and below Physical Exam Const General: cooperative, healthy appearing, comfortable, no acute distress, well developed, alert and awake Nutritional Appearance: overweight Orientation/consciousness: patient oriented x3 Limitations: no limitations HEENT Head: Yes normal to inspection, Yes normocephalic and Yes atraumatic Ears: hearing grossly normal bilaterally Eyes General: appearance normal, both eyes and all related structures Neck Neck: Yes normal visual inspection and Yes trachea midline Chest Chest palpation & inspection: normal inspection of the chest Resp Effort & Inspection: normal respiratory effort and able to speak in complete sentences Cardio Rate: regular rate GI Inspection: Yes normal to inspection General: Yes no CVA tenderness Back/Spine/Pelvis Back: no CVA tenderness Skin General skin exam: no rashes or lesions noted Neuro General: patient oriented x3 Extrem General: Yes normal to inspection Psych Appearance: grossly normal and well kempt Mental Status: mental status grossly normal Speech and movement: Normal speech and movement present and Clear speech present Affect: normal affect Attitude: cooperative Thought process: Normal thought process present Thought content: Normal thought content present Insight: Fair insight present (Psych) Judgement: Fair judgement present (Psych) Results AMB Urinalysis, Automated 2 UA Leukoctes 0 Carlos/uL Last Edit by [employer] on 02/03/25 15:20 UA Nitrite Last Edit by [employer] on 02/03/25 15:20 UA Urobilinogen 0.2 mg/dL Last Edit by [employer] on 02/03/25 15:20 UA Protein 15 mg/dL Last Edit by [employer] on 02/03/25 15:20 UA pH 6.0 Last Edit by [employer] on 02/03/25 15:20 UA Blood 80 Ricki/uL Last Edit by [employer] on 02/03/25 15:20 UA Specific [place] 1.015 Last Edit by [employer] on 02/03/25 15:20 UA Ketone Negative Last Edit by [employer] on 02/03/25 15:20 UA Bilirubin 0 mg/dL Last Edit by [employer] on 02/03/25 15:20 UA Glucose 0 mg/dL Last Edit by [employer] on 02/03/25 15:20 Results Reviewed Results Reviewed: Laboratory Last Values Urine pH (Auto) 6.0 02/03/25 15:19 Specific [place] (Auto) 1.015 02/03/25 15:19 Urine Protein (Auto) 15 mg/dL 02/03/25 15:19 Glucose (UA)(Auto) 0 mg/dL 02/03/25 15:19 Urine Ketones (Auto) Negative 02/03/25 15:19 Urine Blood (Auto) 80 Ricki/uL 02/03/25 15:19 Urine Bilirubin (Auto) 0 mg/dL 02/03/25 15:19 Urine Urobilinogen (Auto) 0.2 mg/dL 02/03/25 15:19 Leukocyte Esterase (Auto) 0 Carlos/uL 03/17/25 15:19 Assessment & Plan Assessment & Plan (1) Elevated PSA: Code(s): R97.20 - Elevated prostate specific antigen [PSA] Category: Medical (2) Erectile dysfunction: Code(s): N52.9 - Male erectile dysfunction, unspecified Category: Medical Plan In office urinalysis results reviewed the patient today; as noted above. Recent PSA results reviewed with the patient today; as noted above We discussed at length potential causes of erectile dysfunction as well as further treatment options and risks and benefits of these treatment options. Continue Cialis 5 mg daily as discussed and prescribed; refill provided Continue p.r.n. Cialis as needed; refill provided. Will obtain redraw of PSA for further assessment evaluation with no sex the night before, no caffeine morning of, and no heavy lifting 1-2 days prior. He denies any bothersome urinary issues or concerns. He reports be happy with current voiding parameters. We discussed importance of lifestyle modifications to assist with erectile dysfunction as well as overall health and well-being. Will obtain retroperitoneal ultrasound for further assessment evaluation. We discussed potential causes of elevated PSA. Follow-up in 1-3 months with PSA to be completed prior; or sooner with any issues, concerns, and or questions. Orders: Orders AMB Urinalysis Automated Today Z13.9 - Encounter for screening, unspecified PSA,Total (Free>4and<10) Today R97.20 - Elevated prostate specific antigen [PSA] US retroperitoneal comp Today R39.9 - Unspecified symptoms and signs involving the genitourinary system, R97.20 - Elevated prostate specific antigen [PSA] Medications: Refilled tadalafil (Cialis) 5 mg PO DAILY 90 tabs 1RF N52.9 - Male erectile dysfunction, unspecified tadalafil (Cialis) administer approximately 60min before sexual activity; do not use more than 1 dose per 24hrs 20 mg PO DAILY PRN 20 tabs 1RF sexual activity Patient Instructions: The patient had an opportunity to ask questions regarding the treatment plan. All questions were answered. Physical exam, labs, and imaging were discussed and reviewed in detail. As well as risks, benefits, and discussion of treatment choices. No major barriers to understanding were identified. The patient expressed understanding and agreement with the above treatment plan. The patient was made aware they should contact our office by phone for worsening of their current condition, the appearance of new symptoms, or with any questions or concerns. Compliance is encouraged with any medications and follow up testing that is ordered. It is a privilege to be allowed the opportunity to participate in? your urological care.? Again, if you have any questions or concerns If you have any questions or concerns please do not hesitate to contact me. The office is [phone]. This note is constructed using voice recognition software. While every effort has been made to ensure accuracy pellet post inspector errors may have been included. Yours sincerely, SHANNA Adrian Coding Level of Care Code Est Pt Level 3 (86433) Diagnoses Elevated PSA R97.20 Erectile dysfunction N52.9
== END 2025-02-03 15:38 | disposition home or self-care (01) ==
LOC: HO.HUSH 15:02
PROVIDERS: PCP Nurse Practitioner Family; Visit Provider Nurse Practitioner Family
DX: R97.20 Elevated prostate specific antigen [PSA] (principal); N52.9 Male erectile dysfunction, unspecified; Z13.9 Encounter for screening, unspecified
CPT/HCPCS: 99213

== ENCOUNTER → 2025-02-03 15:02 | Outpatient (BNVA) | payer OTHER, SELFPAY | PROVIDERS: PCP Nurse Practitioner Family; Visit Provider Nurse Practitioner Family | DX: N52.9 Male erectile dysfunction, unspecified (principal); R97.20 Elevated prostate specific antigen [PSA]; I10 Essential (primary) hypertension; Z79.899 Other long term (current) drug therapy | CPT/HCPCS: 81003 ==

== ENCOUNTER 2025-02-10 15:14 | Outpatient (AMB) | payer OTHER, SELFPAY ==
--- NOTE | 2025-02-10 15:20 | A.OFFPC_ITS ---
Vital Signs 02/10/25 15:23 02/10/25 15:41 Height 5 ft 6 in Weight 287 lb 8 oz BMI 46.4 BP 158/75 H 130/70 Blood Pressure Location Lt brachial Lt brachial Position Sitting Sitting Respiration 16 Pulse 75 Pulse Source Pulse Oximeter Temp 97.7 F Temp Source Oral Pulse Oximetry (%) 96 Oxygen Delivery Method Room Air Intake Visit Reasons: 3 mos HTN, dyslipidemia cecile from 01/09 Intake Note: patient here for 3 month follow up for HTN, Dyslipidema Scrum Project Manager Required: No Allergies Seasonal Allergies Allergy (Severe, Verified 02/10/25 15:36) Itchy Eyes Medication List - Last Reconciled 02/10/25 by Vin Hernandez CNP amlodipine 5 mg PO DAILY 90 days lisinopril 40 mg PO DAILY 90 days meloxicam 15 mg PO DAILY 30 days tadalafil (Cialis) 5 mg PO DAILY tadalafil (Cialis) 20 mg PO DAILY PRN Tobacco use date assessed: 02/10/25 Dental Screening Dental Screen Date: 02/10/25 Did you have a dental visit in the last 12 months?: Yes Did you have a dental problem in the last 6 months where you did not have access to dental care?: No Was dental information given to patient?: Patient has dentist HPI HPI Comments History of Present Illness Details 59-year-old male presents for hypertensi on and hypercholesterolemia follow-up. He admits to taking his medications as prescribed without adverse reactions. He notes that he has been consuming significant amount of unhealthy food in the past 2 months. However, he has been exercising routinely. No acute symptoms at this time. [facility] Medical History Anxiety High blood pressure Surgical History History of left knee replacement Family History Family/Other Prostate cancer Social History Household Members: Spouse Both parents involved: No Caregiver staying overnight: No Housing: House Are you a primary career advisor to a significant other at home: No 75 years or older and lives alone: No Alcohol intake: current Alcohol intake frequency: a few times a week Alcohol type: beer Patient Tobacco Use Status: Never used Tobacco e-Cigarette/Vaping Use: Never Used service: No Current occupational status: employed 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 1. Little interest or pleasure in doing things: not at all 2. Feeling down, depressed, or hopeless: not at all 3. Trouble falling or staying asleep, or sleeping too much: not at all 4. Feeling tired or having little energy: not at all 5. Poor appetite or overeating: not at all 6. Feeling bad about yourself - or that you are a failure or have let yourself or your family down: not at all 7. Trouble concentrating on things, such as reading the newspaper or watching television: not at all 8. Moving or speaking so slowly that other people could have noticed. Or the opposite - being so fidgety or restless that you have been moving around a lot more than usual: not at all 9. Thoughts that you would be better off or of hurting yourself in some way: not at all Total score: 0 Depression Screening Interpretation: Negative Depression Screening Done: Yes Source: Developed by Drs. Chato Rose, Darcie Edmond, Henri Luke and colleagues, with an educational hodan from [employer]. Thrive Questionnaire Date Thrive assessed: 10/07/24 I am a: Patient What is your living situation today?: I have a steady place to live Within the past 12 months, did the food you bought not last and you didn't have the money to get more?: Never true Within the past 12 months, did you worry whether your food would run out before you got money to buy more?: Never true Do you have trouble paying for medicines?: No Do you have trouble getting transportation to medical appointments?: No Do you have trouble paying your heating and electricity bill?: No Do you have trouble taking care of your child, family member or friend?: No Do you have trouble with day-to-day activities such as bathing, preparing meals, shopping, managing finances, etc.?: No Are you currently unemployed and looking for a job?: No Are you interested in more education?: No Please select the resources that you would like help with: None Currently or been in a relationship where the following occur: No concerns repor esdras THRIVE Score: 0 AUDIT C Alcohol Use Questionnaire (AUDIT-C) 1. How often do you have a drink containing alcohol?: 2-4 times a month 2. How many drinks containing alcohol do you have on a typical day when you are drinking?: 1 or 2 3. How often do you have six or more drinks on one occasion?: Never Total Score: 2 JANICE-7 AMB Questionnaire JANICE-7 Date JANICE - 7 assessed: 04/29/24 Feeling nervous, anxious, or on edge: 0 = Not at all Not being able to stop or control worryin = Not at all Worrying too much about different things: 0 = Not at all Trouble relaxin = Not at all Being so restless that it is hard to sit still: 0 = Not at all Becoming easily annoyed or irritable: 0 = Not at all Feeling afraid as if something awful might happen: 0 = Not at all Total JANICE-7 score (0-4 normal; 5-9 mild; 10-14 moderate; 15-21 severe): 0 Source: Developed by Drs. Chato Rose, Darcie Edmond, Henri Luke and colleagues, with an educational hodan from [employer]. Review of Systems Const Details: Const Denies chills, Denies fatigue, Denies fever(s), Denies headache(s) and Denies weakness ENT Denies dizziness and Denies headache(s) Card Denies chest pain, Denies lightheadedness, Denies dyspnea and Denies other (Palpitations) Resp Denies cough, Denies dyspnea, Denies wheezing and Denies other ( shortness of breath) GI Denies abdominal pain, Denies melena, Denies hematochezia, Denies change in bowel habits, Denies dyspepsia and Denies nausea Denies hematuria and Denies dysuria Musc Denies abnormal gait, Denies myalgias, Denies arthralgias, Denies numbness and Denies tingling Skin/Breast Denies rash, Denies unusual bruising and Denies wounds Neuro Denies abnormal gait, Denies dizziness, Denies headache(s), Denies memory loss, Denies numbness, Denies Sensory deficit (Neuro), Denies tingling and Denies weakness Psych Denies anxiety, Denies depression, Denies memory loss Endo Denies cold intolerance, Denies fatigue, Denies heat intolerance, Denies polydipsia and Denies polyuria Aller/Immun Denies wheezing Physical exam (Primary Care) Vital Signs: Last Vital Signs Temp 97.7 F 02/10/25 15:23 Pulse 75 02/10/25 15:23 Resp 16 02/10/25 15:23 BP 130/70 02/10/25 15:41 Pulse Ox 96 02/10/25 15:23 Oxygen Delivery Method Room Air 02/10/25 15:23 BMI result Body Mass Index 46.4 Tobacco/Smoking Status: Tobacco use Status Tobacco use date assessed 02/10/25 02/10/25 15:26 Patient Tobacco Use Status Never used Tobacco 02/10/25 15:21 e-Cigarette/Vaping Use Never Used 02/10/25 15:21 PHQ-9: PHQ-9 Score PHQ-9: Total score 0 02/10/25 15:39 Depression Screening Interpretation: Negative Thrive Assessment: Date of Thrive Assessment Date Thrive assessed 10/07/24 02/10/25 15:21 Currently or been in a relationship where the following occur: No concerns reported Const Other: General: no acute distress and well developed Nutritional Appearance: well nourished Orientation/consciousness: patient oriented x3 HENMT Head: Yes normocephalic and Yes atraumatic Eyes General: appearance normal, both eyes and all related structures Pupils: Equal, round and reactive pupils present EOM: EOMs intact bilaterally Resp Effort & Inspection: normal respiratory effort Auscultation: clear to auscultation bilaterally Cardio Rate: regular rate Rhythm: regular rhythm Heart sounds: S1 normal heart sound present, S2 normal heart sound present, no gallops, no murmurs and no rubs GI Palpation (GI): No Abdominal aortic bruit present, Soft to palpation, nontender, No hepatosplenomegaly present and No Rebound tenderness present Auscultation: normal bowel sounds General: Yes no CVA tenderness Back/Spine/Pelvis Back: no CVA tenderness Cervical Spine: cervical ROM normal and No Cervical spine tenderness Thoracic/Lumbar Spine: thoraco-lumbar ROM normal, No pain with thoraco-lumbar ROM, No thoracic spinal tenderness and No lumbar spinal tenderness Extrem General: Yes normal to inspection, No edema and No calf tenderness Skin General: warm and dry. Normal skin color. Normal skin turgor Neuro General: patient oriented x3, gait normal and no focal neuro deficit Cranial nerves: Yes Equal, round and reactive pupils present Cognition (Neuro): normal cognition Gait exam (Neuro): Normal gait present Sensory Exam: No Sensory deficit (Neuro) Psych Appearance: grossly normal Affect: normal affect Attitude: cooperative Thought process: Normal thought process present Coding Level of Care Code Est Pt Prev Care 40-64y(14598) Diagnoses High blood pressure I10 Hyperlipidemia E78.5 Laboratory tests ordered as part of a complete physical exam (CPE) Z00.00 Assessment & Plan Assessment & Plan (1) High blood pressure: Code(s): I10 - Essential (primary) hypertension Category: Medical Plan: Resting blood pressure is 130/70, within goal of less than 140/90. Continue current treatment regimen. Follow-up in 3 months for an extended physical exam, hypertension, and hyperlipidemia. Return sooner with symptoms or concerns. Verbalized understanding and agreed with treatment plan. (2) Hyperlipidemia: Code(s): E78.5 - Hyperlipidemia, unspecified Category: Medical Plan: Recent total cholesterol and LDL levels are slightly elevated, 209 and 140 respectively, previous levels were 220 and 159 respectively. He has been consuming significant amount of unhealthy foods in the past 2 months. Advised to limit foods high in saturated fat and avoid foods high in trans fat. Routine exercise encouraged. Fast for 10-12 hours, may drink water, and perform lipid panel blood work 2-3 days before next visit. Verbalized understanding and agreed with treatment plan. (3) Laboratory tests ordered as part of a complete physical exam (CPE): Code(s): Z00.00 - Encounter for general adult medical examination without abnormal findings Category: Medical Plan: Fasting labs ordered as part of a complete physical exam. Advised to fast for at least 10 hours before getting labs drawn. May drink water Verbalized understanding and agreed with treatment plan. Orders: Orders Vitamin D 25-OH Total Today Z00.00 - Encounter for general adult medical examination without abnormal findings Complete Blood Count Auto Diff Today Z00.00 - Encounter for general adult medical examination without abnormal findings Comprehensive [place]. Panel Fast Today Z00.00 - Encounter for general adult medical examination without abnormal findings Lipid Panel Today Z00.00 - Encounter for general adult medical examination without abnormal findings TSH reflex Free T4 Today Z00.00 - Encounter for general adult medical examination without abnormal findings UA CC w/rflx Micro + Cult Today Z00.00 - Encounter for general adult medical examination without abnormal findings Microalbumin, Random (w Creat) Today Z00.00 - Encounter for general adult medical examination without abnormal findings
[2025-02-10 15:23] VITALS: BP 158/75; PULSE 75; RESP 16; TEMP 36.5; O2SAT 96; BMI 46.4
[2025-02-10 15:41] VITALS: BP 130/70
== END 2025-02-10 15:45 | disposition home or self-care (01) ==
LOC: HO.HMCFM 15:15
PROVIDERS: PCP Nurse Practitioner Family; Visit Provider Nurse Practitioner Family
DX: I10 Essential (primary) hypertension (principal); E78.5 Hyperlipidemia, unspecified; Z00.00 Encounter for general adult medical examination without abnormal findings

== ENCOUNTER 2025-04-21 15:19 | Outpatient (REF) | payer OTHER, SELFPAY ==
--- NOTE | ~2025-04-21 | US_ITS ---
EXAMINATION: US RETROPERITONEUM HISTORY: R97.20 - Elevated prostate specific antigen [PSA] TECHNIQUE: Real-time grayscale ultrasound imaging of the kidneys was performed and images were reviewed. COMPARISON: There are no prior studies available for comparison. FINDINGS: Right kidney: The right kidney measures 12.7 x 6.4 x 7.2 cm. Renal parenchymal echotexture and thickness are normal. There is a 3.8 x 3.7 x 3.8 cm cyst at the lower pole demonstrating fine septations. There is no hydronephrosis or renal calculi. Left Kidney: The left kidney measures 12.9 x 6.2 x 7.1 cm. Renal parenchymal echotexture and thickness are normal. There are no masses. There is no hydronephrosis or renal calculi. The urinary bladder is unremarkable. Bilateral ureteral jets are identified. Before voiding, the urinary bladder measured 8.2 x 12.6 x 5.7 cm, for an estimated volume of 308 mL. After voiding, the urinary bladder measured 6.1 x 9.1 x 3.9 cm, for an estimated volume of 114 mL. The prostate measures 4.6 x 3.9 x 3.8 cm, for an estimated volume of 35.8 mL. US/US retroperitoneal comp IMPRESSION: 1. 3.8 cm septated right renal cyst. Follow-up is recommended. 2. Post void bladder residual of 114 mL. Prostate volume of 38.8 mL. Electronically signed by: Chato Santa MD 04/22/2025 07:12 AM EDT
== END 2025-04-21 15:20 | disposition home or self-care (01) ==
LOC: HO.HMGCX 15:19
PROVIDERS: PCP Nurse Practitioner Family; Visit Provider Nurse Practitioner Family
DX: R97.20 Elevated prostate specific antigen [PSA] (principal); R39.9 Unspecified symptoms and signs involving the genitourinary system
CPT/HCPCS: 76770

== ENCOUNTER → 2025-04-21 15:20 | Outpatient (BNV) | payer OTHER, SELFPAY | PROVIDERS: PCP Nurse Practitioner Family; Visit Provider Radiology Diagnostic Radiology | DX: N28.1 Cyst of kidney, acquired (principal) | CPT/HCPCS: 76770 ==

== ENCOUNTER 2025-04-28 12:15 | Outpatient (REF) | payer OTHER, SELFPAY ==
[2025-04-28 14:21] LABS: PSA,Total (Free>4and<10) 5.29 ng/mL (0.00-4.00)
[2025-04-29 14:03] LABS: Free Prostate Spec Ag 0.7 ng/mL; Percent Free Prostate Spec Ag 15 % (calc) (>25); Prostate Specific Ag Total 4.6 ng/mL (< OR = 4.0)
== END 2025-04-28 12:16 | disposition home or self-care (01) ==
LOC: HO.HMGCLDS 12:15
PROVIDERS: PCP Nurse Practitioner Family; Visit Provider Nurse Practitioner Family
DX: R97.20 Elevated prostate specific antigen [PSA] (principal); Z12.5 Encounter for screening for malignant neoplasm of prostate
CPT/HCPCS: 36415; 84153; 84154

== ENCOUNTER 2025-05-02 13:09 | Outpatient (REF) | payer OTHER, SELFPAY ==
[2025-05-02 16:08] LABS: MANUAL DIFF FLAG NO
[2025-05-02 16:18] LABS: Appearance Urine Turbid; Color Urine Dark Yellow; Glucose Urine UA Negative (Negative); Leukocyte Esterase Urine Negative (Negative); Nitrite Urine Negative (Negative); PH 5.5 (5.0-9.0); Specific Gravity - Urine 1.025 (1.005-1.025); UMIC TRIGGER UACC YES; Urine Blood Small (1+) (Negative); Urine Ketones Trace mg/dL (Negative); Urine Protein Trace mg/dL (Neg-Trace)
[2025-05-02 16:20] LABS: Basophils Percent Auto 0.4 % (0-2); Eosinophils Absolute Auto 0.1 X10*3/uL (0.0-0.4); Eosinophils Percent Auto 1.1 % (0-4); Hematocrit 44.5 % (42.0-52.0); Hemoglobin 15.3 g/dl (14.0-18.0); Imm Gran Abs Auto 0.02 X10*3/uL (0.00-0.03); Imm Gran Pct Auto 0.3 % (0.0-0.4); Lymphocytes Absolute Auto 1.7 X10*3/uL (1.2-4.9); Lymphocytes Percent Auto 23.4 % (20-40); Mean Corpuscular HGB Conc 34.4 g/dl (31.0-36.0); Mean Corpuscular Hemoglobin 29.3 pg (27.0-33.0); Mean Corpuscular Volume 85.1 fL (80.0-98.0); Mean Platelet Volume 9.3 fL (9.4-12.4); Monocytes Absolute Auto 0.6 X10*3/uL (0.1-1.2); Monocytes Percent Auto 8.1 % (2-11); Neutrophils Absolute Auto 4.8 x10*3/uL (2.0-8.3); Neutrophils Percent Auto 66.7 % (45-73); Platelet Count 281 X10*3/uL (160-400); Red Blood Count 5.23 X10*6/uL (4.60-5.80); Red Cell Distribution Width 13.1 % (11.0-16.0); White Blood Count 7.3 X10*3/uL (4.8-10.8)
[2025-05-02 16:23] LABS: Bacteria Urine None Seen (None Seen); Hyaline Casts Urine 0-2 /LPF (0-2); Squamous Epithelial Cell Urine 0-2 /HPF (0-2); WBC Urine 0-5 /HPF (0-5)
[2025-05-02 16:41] LABS: Microalbum/Creatinine Ratio Ur 10.6 ug/mg cr (<30)
[2025-05-02 16:46] LABS: Alanine Aminotransferase 25 U/L (0-40); Albumin Level 4.5 g/dL (3.5-5.0); Alkaline Phosphatase 75 U/L (39-117); Anion Gap 12 (12-20); Aspartate Amino Transferase 30 U/L (5-37); Bilirubin Total 0.6 mg/dL (0.0-1.0); Blood Urea Nitrogen 16 mg/dL (9-16); Calcium 9.2 mg/dL (8.4-10.2); Carbon Dioxide 24 mmol/L (22-29); Chloride 106 mmol/L (96-108); Cholesterol 206 mg/dL (<200); Estimated Glomerular Filt Rate > 60; Glucose Fasting 77 mg/dL (60-99); HDL Cholesterol 38 mg/dL (>40); LDL Cholesterol Calculated 149 mg/dL (<100); Sodium 138 mmol/L (135-145); Total Protein 6.8 g/dL (6.5-8.0); Triglycerides 96 mg/dL (<150)
[2025-05-02 16:49] LABS: TSH reflex Free T4 1.28 uIU/mL (0.32-4.0)
== END 2025-05-02 13:10 | disposition home or self-care (01) ==
LOC: HO.HMGCLDS 13:09
PROVIDERS: PCP Nurse Practitioner Family; Visit Provider Nurse Practitioner Family
DX: Z00.00 Encounter for general adult medical examination without abnormal findings (principal); Z13.6 Encounter for screening for cardiovascular disorders
CPT/HCPCS: 36415; 80053; 80061; 81001; 82043; 82306; 82570; 84443; 85025

== ENCOUNTER 2025-05-06 15:06 | Outpatient (AMB) | payer OTHER, SELFPAY ==
--- NOTE | 2025-05-06 15:08 | A.OFFVIS_ITS ---
Intake Visit Reasons: 3 month follow up/ PSA Total Free PSA/ US Intake Note: Patient presents for 3m follow up/PSA/[place] * PSA: 5.29 * Imaging 04-21-25 Urology Medications: tadalafil Blood Thinner: none Veterinary Pathologist Required: No Accompanied by: Self / Same As Patient Allergies Seasonal Allergies Allergy (Severe, Verified 05/06/25 15:31) Itchy Eyes Medication List - Last Reconciled 05/06/25 by Jennie Vazquez [employer]- amlodipine 5 mg PO DAILY 90 days levofloxacin 500 mg PO DAILY 3 days lisinopril 40 mg PO DAILY 90 days meloxicam 15 mg PO DAILY 30 days tadalafil (Cialis) 5 mg PO DAILY tadalafil (Cialis) 20 mg PO DAILY PRN HPI Comments Details: Ford is a very pleasant 59-year-old male patient of Dr. Hernandez. He has a past medical history of hypertension and anxiety. He presents to the office today for follow-up of his elevated PSA and erectile dysfunction. Of note, patient was seen approximately 3 months ago at which time recommendations were made for redraw of PSA and obtaining retroperitoneal ultrasound for further assessment evaluation. These results were reviewed and communicated with the patient today. 05/14 3.8 cm septated right renal cyst follow-up is recommended per radiology report. The prostate measures 39 mL. Bilateral kidneys with no calculi or hydronephrosis noted bilaterally. PSAs are as follows: Testosterone 02/10 352 Free testosterone 02/10 68.3 PSA 02/10 3.7, 02/11 5.2, 05/14 5.3 % free PSA 15% We did discuss potential causes of elevated PSA as well as further treatment options and risks and benefits of these treatment options. He does continue to experience issues with erectile dysfunction. He does report family history of prostate cancer and states his brother had prostate cancer. He discusses feeling erectile dysfunction is related to his hypertensive medications as he feels he started experiencing ED shortly after starting hypertensive medications. He otherwise denies any bothersome urinary issues. He denies urinary urgency, urinary frequency, incontinence, nocturia, hematuria, dysuria, foul smelling urine, changes to urinary stream, flank pain, fever, and or chills. We did discussed PCPT risk calculator results to include potential prostate biopsy 63% negative for prostate cancer, 28% chance of low-grade prostate cancer, and 9% chance of high-grade prostate cancer. In office urinalysis results reviewed with the patient today. All questions were answered. He otherwise offers no other issues or concerns at this time. [facility] Medical History Anxiety High blood pressure Surgical History History of left knee replacement Family History Family/Other Prostate cancer Social History Household Members: Spouse Both parents involved: No Caregiver staying overnight: No Housing: House Are you a primary hospice home care coordinator to a significant other at home: No 75 years or older and lives alone: No Alcohol intake: current Alcohol intake frequency: a few times a week Alcohol type: beer Patient Tobacco Use Status: Never used Tobacco e-Cigarette/Vaping Use: Never Used service: No Current occupational status: employed Current occupation: [employer] Cognitive needs: No Hearing needs: No Vision needs: No Review of Systems Const All systems reviewed & are unremarkable except as noted in HPI and below Physical Exam Const General: cooperative, healthy appearing, comfortable, no acute distress, well developed, alert and awake Nutritional Appearance: overweight Orientation/consciousness: patient oriented x3 Limitations: no limitations HEENT Head: Yes normal to inspection, Yes normocephalic and Yes atraumatic Ears: hearing grossly normal bilaterally Eyes General: appearance normal, both eyes and all related structures Neck Neck: Yes normal visual inspection and Yes trachea midline Chest Chest palpation & inspection: normal inspection of the chest Resp Effort & Inspection: normal respiratory effort and able to speak in complete sentences Cardio Rate: regular rate GI Inspection: Yes normal to inspection General: Yes no CVA tenderness Back/Spine/Pelvis Back: no CVA tenderness Skin General skin exam: no rashes or lesions noted Neuro General: patient oriented x3 Extrem General: Yes normal to inspection Psych Appearance: grossly normal and well kempt Mental Status: mental status grossly normal Speech and movement: Normal speech and movement present and Clear speech present Affect: normal affect Attitude: cooperative Thought process: Normal thought process present Thought content: Normal thought content present Insight: Fair insight present (Psych) Judgement: Fair judgement present (Psych) Results AMB Urinalysis, Automated UA Leukoctes 0 Carlos/uL Last Edit by Crystal Givens on 05/06/25 15:19 UA Nitrite Negative Last Edit by Crystal Givens on 05/06/25 15:19 UA Urobilinogen 3.5 mg/dL Last Edit by Crystal Givens on 05/06/25 15:19 UA Protein 0 mg/dL Last Edit by Crystal Givens on 05/06/25 15:19 UA pH 6.0 Last Edit by Crystal Givens on 05/06/25 15:19 UA Blood 200 Ricki/uL Last Edit by Crystal Givens on 05/06/25 15:19 UA Specific [place] 1.015 Last Edit by Crystal Givens on 05/06/25 15:19 UA Ketone Negative Last Edit by Crystal Givens on 05/06/25 15:19 UA Bilirubin 0 mg/dL Last Edit by Crystal Givens on 05/06/25 15:19 UA Glucose 0 mg/dL Last Edit by Crystal Givens on 05/06/25 15:19 Results Reviewed Results Reviewed: Laboratory Last Values Urine pH (Auto) 6.0 05/06/25 08:26 Specific [place] (Auto) 1.015 05/06/25 08:26 Urine Protein (Auto) 0 mg/dL 05/06/25 08:26 Glucose (UA)(Auto) 0 mg/dL 05/06/25 08:26 Urine Ketones (Auto) Negative 05/06/25 08:26 Urine Blood (Auto) 200 Ricki/uL 05/06/25 08:26 Urine Nitrite (Auto) Negative 05/06/25 08:26 Urine Bilirubin (Auto) 0 mg/dL 05/06/25 08:26 Urine Urobilinogen (Auto) 3.5 mg/dL 05/06/25 08:26 Leukocyte Esterase (Auto) 0 Carlos/uL 05/06/25 08:26 Date of Service: 04/21/25 Procedure(s): US retroperitoneal comp FINDINGS: Right kidney: The right kidney measures 12.7 x 6.4 x 7.2 cm. Renal parenchymal echotexture and thickness are normal. There is a 3.8 x 3.7 x 3.8 cm cyst at the lower pole demonstrating fine septations. There is no hydronephrosis or renal calculi. Left Kidney: The left kidney measures 12.9 x 6.2 x 7.1 cm. Renal parenchymal echotexture and thickness are normal. There are no masses. There is no hydronephrosis or renal calculi. The urinary bladder is unremarkable. Bilateral ureteral jets are identified. Before voiding, the urinary bladder measured 8.2 x 12.6 x 5.7 cm, for an estimated volume of 308 mL. After voiding, the urinary bladder measured 6.1 x 9.1 x 3.9 cm, for an estimated volume of 114 mL. The prostate measures 4.6 x 3.9 x 3.8 cm, for an estimated volume of 35.8 mL. IMPRESSION: 1. 3.8 cm septated right renal cyst. Follow-up is recommended. 2. Post void bladder residual of 114 mL. Prostate volume of 38.8 mL. Assessment & Plan Assessment & Plan (1) Elevated PSA: Code(s): R97.20 - Elevated prostate specific antigen [PSA] Category: Medical Plan: Plan Risks and benefits regarding trans rectal ultrasound with prostate biopsy were discussed.? Options of continued surveillance, no treatment and biopsy were offered. The risks include but are not limited to, urinary tract infection, sepsis, difficulty urinating, bleeding into the rectum or bladder that requires intervention and transfusion,and failure to diagnose prostate cancer. The patient understands the options and the risks involved. They wish to proceed. Printed information was provided to ensure he remains off anticoagulation for the appropriate length of time. He may require cardiology or PCP clearance.? An antibiotic will be administered prior to, and following the procedure (2) Erectile dysfunction: Code(s): N52.9 - Male erectile dysfunction, unspecified Category: Medical (3) Renal cyst: Code(s): N28.1 - Cyst of kidney, acquired Category: Medical Plan In office urinalysis results reviewed with the patient today; as noted above. Recent PSA results reviewed with the patient today; as noted above. Recent retroperitoneal ultrasound results reviewed with the patient today; as noted above. We did discussed potential causes of elevated PSA as well as further treatment options and risks and benefits of these treatment options. Will schedule for prostate biopsy as discussed. We did discussed surveillance monitoring of renal cyst. Prescription provided and we discussed specific instructions of taking antibiotic therapy day before surgical procedure, day of surgical procedure, and day after surgical procedure. Follow-up per doctor's orders; or sooner with any issues, concerns, and or questions. Orders: Orders AMB Urinalysis Automated Today Z13.9 - Encounter for screening, unspecified Biopsy - Core needle Today R97.20 - Elevated prostate specific antigen [PSA] Medications: New levofloxacin take 1 tablet day before procedure, 1 tablet day of procedure and 1 tablet day after procedure 500 mg PO DAILY 3 days 3 tabs 0RF Patient Instructions: The patient had an opportunity to ask questions regarding the treatment plan. All questions were answered. Physical exam, labs, and imaging were discussed and reviewed in detail. As well as risks, benefits, and discussion of treatment choices. No major barriers to understanding were identified. The patient expressed understanding and agreement with the above treatment plan. The patient was made aware they should contact our office by phone for worsening of their current condition, the appearance of new symptoms, or with any questions or concerns. Compliance is encouraged with any medications and follow up testing that is ordered. It is a privilege to be allowed the opportunity to participate in? your urological care.? Again, if you have any questions or concerns If you have any questions or concerns please do not hesitate to contact me. The office is [phone]. This note is constructed using voice recognition software. While every effort has been made to ensure accuracy pediatric urologist errors may have been included. Yours sincerely, SHANNA Adrian Coding Level of Care Code Est Pt Level 4 (95973) Diagnoses Elevated PSA R97.20 Erectile dysfunction N52.9 Renal cyst N28.1
== END 2025-05-06 15:34 | disposition home or self-care (01) ==
LOC: HO.HUSH 15:07
PROVIDERS: PCP Nurse Practitioner Family; Visit Provider Nurse Practitioner Family
DX: R97.20 Elevated prostate specific antigen [PSA] (principal); N52.9 Male erectile dysfunction, unspecified; N28.1 Cyst of kidney, acquired; Z13.9 Encounter for screening, unspecified
CPT/HCPCS: 99214

== ENCOUNTER 2025-05-06 15:06 | Outpatient (REF) | payer OTHER, SELFPAY ==
[2025-05-06 16:43] LABS: Urine Cytology See Pathology rpt
== END 2025-05-06 15:07 | disposition home or self-care (01) ==
LOC: HO.LAB 15:06
PROVIDERS: PCP Nurse Practitioner Family; Visit Provider Nurse Practitioner Family
DX: R31.29 Other microscopic hematuria (principal)
CPT/HCPCS: 81003; 88112

== ENCOUNTER 2025-05-30 07:52 | Outpatient (REF) | payer OTHER, SELFPAY ==
--- NOTE | 2025-05-30 08:47 | W.PM.OPN ---
Operative Note Operative Note Date of Service: 05/30/25 Narrative: PreOperative Diagnosis:? ? Elevated PSA Post Operative Diagnosis:??Elevated PSA Procedure:?1. Transrectal ultrasound guided biopsy of the prostate 12 core 2. Transrectal ultrasound measurement of prostate 3. Transrectal ultrasound guided pudendal nerve block Surgeon:?Dr Rancho Varma Anesthesia:? Local, Indications for procedure: Elevated PSA Procedure: Preoperative antibiotics confirmed. After informed consent was verified the patient was placed on the procedure table in left lateral position. Patient identity confirmed. Safety pause time-out performed. Digital rectal exam performed to dilate rectal sphincter, iodine mixed with lubricant jelly 30 cc placed per rectum. Ultrasound probe was placed per rectum. The prostate was visualized. The were multiple calcifications noted through-out the prostate,. The prostate was measured width 5.09cm, height 4.14 cm, length 5.18 cm with a volume of 57.1 mL. An ultrasound guided pudendal nerve block was performed using 10 cc of 1% lidocaine. A 12 core biopsy was performed from the left base, left mid, left apex and right base, mid, apex 2 biopsies from each section. The ultrasound probe was removed and digital palpation of the prostate for 1-2 minutes for hemostasis was performed. The patient tolerated the procedure well. Complications: None
[2025-05-30] MEDS: Lidocaine HCl 1 % MPF 5 ML VIAL 10 ML SUBCUT (08:57)
== END 2025-05-30 07:53 | disposition home or self-care (01) ==
LOC: HO.US 07:52
PROVIDERS: PCP Nurse Practitioner Family; Visit Provider Urology
DX: R97.20 Elevated prostate specific antigen [PSA] (principal)
CPT/HCPCS: 55700; 76942; 88305; 88342; J2003

== ENCOUNTER → 2025-05-30 07:52 | Outpatient (BNV) | payer OTHER, SELFPAY | PROVIDERS: PCP Nurse Practitioner Family; Visit Provider Urology | DX: R97.20 Elevated prostate specific antigen [PSA] (principal) | CPT/HCPCS: 55700; 76872; 76942 ==

== ENCOUNTER 2025-06-18 15:18 | Outpatient (AMB) | payer OTHER, SELFPAY ==
--- NOTE | 2025-06-18 15:40 | MHC.OFFVIS ---
Intake Visit Reasons: Prostate biopsy results Intake Note: Patient presents for prostate biopsy results Urology Medications: tadalafil Blood Thinner: none Physician Non Invasive Cardiologist Required: No Accompanied by: Self / Same As Patient Allergies Seasonal Allergies Allergy (Severe, Verified 06/18/25 15:42) Itchy Eyes Medication List - Last Reconciled 06/18/25 by Rancho Varma MD amlodipine 5 mg PO DAILY 90 days finasteride (Proscar) 5 mg PO DAILY lisinopril 40 mg PO DAILY 90 days meloxicam 15 mg PO DAILY 30 days tadalafil (Cialis) 5 mg PO DAILY tadalafil (Cialis) 20 mg PO DAILY PRN PFSH Medical History Anxiety High blood pressure Surgical History History of left knee replacement Family History Family/Other Prostate cancer Social History Household Members: Spouse Both parents involved: No Caregiver staying overnight: No Housing: House Are you a primary healthcare market consultant to a significant other at home: No 75 years or older and lives alone: No Alcohol intake: current Alcohol intake frequency: a few times a week Alcohol type: beer Patient Tobacco Use Status: Never used Tobacco e-Cigarette/Vaping Use: Never Used service: No Current occupational status: employed 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 Cognitive needs: No Hearing needs: No Vision needs: No Results AMB Urinalysis, Automated UA Leukoctes 0 Carlos/uL Last Edit by Nona Givens on 06/18/25 16:41 UA Nitrite Negative Last Edit by Nona Givens on 06/18/25 16:41 UA Urobilinogen 3.5 mg/dL Last Edit by Nona Givens on 06/18/25 16:41 UA Protein 1 mg/dL Last Edit by Nona Givens on 06/18/25 16:41 UA pH 6.0 Last Edit by Nona Givens on 06/18/25 16:41 UA Blood 0 Ricki/uL Last Edit by Nona Givens on 06/18/25 16:41 UA Specific [place] 1.015 Last Edit by Nona Givens on 06/18/25 16:41 UA Ketone Negative Last Edit by Nona Givens on 06/18/25 16:41 UA Bilirubin 0 mg/dL Last Edit by Nona Givens on 06/18/25 16:41 UA Glucose 0 mg/dL Last Edit by Nona Givens on 06/18/25 16:41 Assessment & Plan Assessment & Plan (1) Enlarged prostate: Code(s): N40.0 - Benign prostatic hyperplasia without lower urinary tract symptoms Category: Medical Orders: Orders AMB Urinalysis Automated Today Z13.9 - Encounter for screening, unspecified Medications: New finasteride (Proscar) 5 mg PO DAILY 90 tabs 3RF N40.0 - Benign prostatic hyperplasia without lower urinary tract symptoms Discontinued levofloxacin take 1 tablet day before procedure, 1 tablet day of procedure and 1 tablet day after procedure Discontinued Reason: Patient Completed Course 500 mg PO DAILY 3 days 3 tabs 0RF Coding Diagnoses Enlarged prostate N40.0
== END 2025-06-18 16:10 | disposition home or self-care (01) ==
LOC: HO.HUSH 15:18
PROVIDERS: PCP Nurse Practitioner Family; Visit Provider Urology
DX: Z13.9 Encounter for screening, unspecified (principal)

== ENCOUNTER → 2025-06-18 15:18 | Outpatient (BNVA) | payer OTHER, SELFPAY | PROVIDERS: PCP Nurse Practitioner Family; Visit Provider Urology | DX: N40.0 Benign prostatic hyperplasia without lower urinary tract symptoms (principal) | CPT/HCPCS: 81003 ==

== ENCOUNTER 2025-07-07 14:51 | Outpatient (AMB) | payer OTHER, SELFPAY ==
--- NOTE | 2025-07-07 14:54 | MHC.PC.OV ---
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 Required: No Allergies Seasonal Allergies Allergy (Severe, Verified 07/07/25 15:14) Itchy Eyes Medication List - Last Reconciled 07/07/25 by Vin Hernandez CNP amlodipine 5 mg PO DAILY 90 days finasteride (Proscar) 5 mg PO DAILY lisinopril 40 mg PO DAILY 90 days meloxicam 15 mg PO DAILY 30 days tadalafil (Cialis) 5 mg PO DAILY tadalafil (Cialis) 20 mg PO DAILY PRN Tobacco use date assessed: 07/07/25 Dental Screening Dental Screen Date: 07/07/25 Did you have a dental visit in the last 12 months?: Yes Did you have a dental problem in the last 6 months where you did not have access to dental care?: No Was dental information given to patient?: Patient has dentist HPI HPI Comments History of Present Illness Details 60-year-old male presents for an extended physical exam. He admits to taking his medications as prescribed without adverse reactions. He has been doing weight watcher for the past 40 days and has lost 15 lbs. He requests dermatology referral to [facility] for skin cancer screening. Acute issue(s) - None Past Medical History - HTN, HLD, anxiety, enlarged prostate, chronic bilat knee pain, left total knee replacement Social History - Nonsmoker. Does not vape. Drinks 1-2 beers weekly. Denies recreational drug use - Has been making healthy dietary choices. Active but does not exercise. Generally sleep well Health maintenance - Last eye exam was several years ago. Referred to Ophthalmology for routine eye exam - Last dental visit was 2 weeks ago - Unknown last Tdap status; received Tdap vaccine today - He notes that he is up-to-date on the shingles vaccines - Has not been vaccinated for the flu this season; declines vaccination - Last colonoscopy was 4 years ago with [facility]: Normal. Will obtain record for review Special[place] [facility] [facility] Medical History Anxiety High blood pressure Surgical History History of left knee replacement Family History Family/Other Prostate cancer Social History Household Members: Spouse Both parents involved: No Caregiver staying overnight: No Housing: House Are you a primary career technical education teacher to a significant other at home: No 75 years or older and lives alone: No Alcohol intake: current Alcohol intake frequency: a few times a week Alcohol type: beer Patient Tobacco Use Status: Never used Tobacco e-Cigarette/Vaping Use: Never Used Second Hand Smoke Exposure: No service: No Current occupational status: employed 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 1. Little interest or pleasure in doing things: not at all 2. Feeling down, depressed, or hopeless: not at all 3. Trouble falling or staying asleep, or sleeping too much: not at all 4. Feeling tired or having little energy: not at all 5. Poor appetite or overeating: not at all 6. Feeling bad about yourself - or that you are a failure or have let yourself or your family down: not at all 7. Trouble concentrating on things, such as reading the newspaper or watching television: not at all 8. Moving or speaking so slowly that other people could have noticed. Or the opposite - being so fidgety or restless that you have been moving around a lot more than usual: not at all 9. Thoughts that you would be better off or of hurting yourself in some way: not at all Total score: 0 Depression Screening Interpretation: Negative Depression Screening Done: Yes 39360 - PHQ-9 Billing: Yes Source: Developed by Drs. Chato Rose, Darcie Edmond, Henri Luke and colleagues, with an educational hodan from [employer] Thrive Questionnaire Date Thrive assessed: 07/07/25 I am a: Patient What is your living situation today?: I have a steady place to live Within the past 12 months, did the food you bought not last and you didn't have the money to get more?: Never true Within the past 12 months, did you worry whether your food would run out before you got money to buy more?: Never true Do you have trouble paying for medicines?: No Do you have trouble getting transportation to medical appointments?: No Do you have trouble paying your heating and electricity bill?: No Do you have trouble taking care of your child, family member or friend?: No Do you have trouble with day-to-day activities such as bathing, preparing meals, shopping, managing finances, etc.?: No Are you currently unemployed and looking for a job?: No Are you interested in more education?: No Please select the resources that you would like help with: None Currently or been in a relationship where the following occur: No concerns reported THRIVE Score: 0 AUDIT C Alcohol Use Questionnaire (AUDIT-C) 1. How often do you have a drink containing alcohol?: 2-3 times a week 2. How many drinks containing alcohol do you have on a typical day when you are drinking?: 1 or 2 3. How often do you have six or more drinks on one occasion?: Never Total Score: 3 Score Reviewed/Action Taken: Yes JANICE-7 AMB Questionnaire JANICE-7 Date JANICE - 7 assessed: 07/07/25 Feeling nervous, anxious, or on edge: 0 = Not at all Not being able to stop or control worryin = Not at all Worrying too much about different things: 0 = Not at all Trouble relaxin = Not at all Being so restless that it is hard to sit still: 0 = Not at all Becoming easily annoyed or irritable: 0 = Not at all Feeling afraid as if something awful might happen: 0 = Not at all Total JANICE-7 score (0-4 normal; 5-9 mild; 10-14 moderate; 15-21 severe): 0 Source: Developed by Drs. Chato Rose, Darcie Edmond, Henri uLke and colleagues, with an educational hodan from [employer] JANICE-7 Assessment Billing JANICE-7 Assessment Tool: JANICE-7 Assessment 05329 Review of Systems Const Details: Denies chills, Denies fatigue, Denies fever(s), Denies headache(s) and Denies weakness HEENT Denies change in vision, Denies dizziness, Denies headache(s), Denies hearing loss, Denies nasal congestion, Denies sinus pain, Denies sinus pressure and Denies sore throat Card Denies chest pain, Denies lightheadedness, Denies dyspnea and Denies other (palpitations) Resp Denies cough, Denies dyspnea and Denies wheezing GI Denies abdominal pain, Denies melena, Denies hematochezia, Denies change in bowel habits, Denies dyspepsia and Denies nausea Denies hematuria and Denies dysuria Musc Denies abnormal gait, Denies myalgias, Denies arthralgias, Denies numbness and Denies tingling Skin/Breast Denies rash, Denies unusual bruising and Denies wounds Neuro Denies abnormal gait, Denies dizziness, Denies headache(s), Denies memory loss, Denies numbness, Denies Sensory deficit (Neuro), Denies tingling and Denies weakness Psych Denies anxiety, Denies depression and Denies memory loss Endo Denies cold intolerance, Denies fatigue, Denies heat intolerance, Denies polydipsia and Denies polyuria Yuri/Lymph Denies easy bleeding and Denies easy bruising Aller/Immun Denies wheezing Physical exam (Primary Care) Vital Signs: Last Vital Signs Temp 97.9 F 07/07/25 15:00 Pulse 60 07/07/25 15:00 Resp 16 07/07/25 15:00 BP 133/60 07/07/25 15:00 Pulse Ox 96 07/07/25 15:00 Oxygen Delivery Method Room Air 07/07/25 15:00 BMI result Body Mass Index 42.4 Tobacco/Smoking Status: Tobacco use Status Tobacco use date assessed 07/07/25 07/07/25 14:59 Patient Tobacco Use Status Never used Tobacco 07/07/25 14:57 e-Cigarette/Vaping Use Never Used 07/07/25 14:57 PHQ-9: PHQ-9 Score PHQ-9: Total score 0 07/07/25 15:07 Depression Screening Interpretation: Negative Thrive Assessment: Date of Thrive Assessment Date Thrive assessed 07/07/25 07/07/25 15:07 Currently or been in a relationship where the following occur: No concerns reported Const Other: General: no acute distress, well developed, alert and awake Nutritional Appearance: well nourished Orientation/consciousness: patient oriented x3 [facility] Head: Yes normocephalic and Yes atraumatic Ears: hearing grossly normal bilaterally and TM's normal bilaterally General nose exam: Normal external nose present and Normal nares present Mouth: Normal oral and palatal mucosa present and moist mucous membranes Teeth and gingiva: dentition normal Throat: Yes oropharynx normal Eyes Pupils: Equal, round and reactive pupils present and Pupil accommodation reflex normal EOM: EOMs intact bilaterally Neck Neck: Yes normal visual inspection, Yes no lymphadenopathy and Yes trachea midline Thyroid: Thyroid normal Carotids: no bruits Lymphatic: no lymphadenopathy noted Chest Chest palpation & inspection: normal inspection of the chest Resp Effort & Inspection: normal respiratory effort Auscultation: clear to auscultation bilaterally Cardio Rate: regular rate Rhythm: regular rhythm Heart sounds: S1 normal heart sound present, S2 normal heart sound present, no gallops, no murmurs and no rubs Bruits: no abdominal aortic bruits and no carotid bruits GI Palpation (GI): No Abdominal aortic bruit present, Soft to palpation, nontender, No hepatosplenomegaly present and No Rebound tenderness present Auscultation: normal bowel sounds General: Yes no CVA tenderness Back/Spine/Pelvis Back: no CVA tenderness Cervical Spine: cervical ROM normal and No Cervical spine tenderness Thoracic/Lumbar Spine: thoraco-lumbar ROM normal, No pain with thoraco-lumbar ROM, No thoracic spinal tenderness and No lumbar spinal tenderness Skin General: warm and dry. Normal skin color. Normal skin turgor Lesions: no lesions Rashes: no rashes Trauma: no lacerations or abrasions Wounds: no wounds Nails: normal Neuro General: patient oriented x3, gait normal and CN's II-XI intact bilaterally Cranial nerves: Yes Equal, round and reactive pupils present Cognition (Neuro): normal cognition Gait exam (Neuro): Normal gait present Motor exam (neuro): 5/5 motor strength present throughout Sensory Exam: No Sensory deficit (Neuro) Deep tendon reflexes (DTR's): Right patellar reflex intensity grade: 2+ and Left patellar reflex intensity grade: 2+ Extrem General: Yes normal to inspection, No edema and No calf tenderness Psych Appearance: grossly normal Affect: normal affect Attitude: cooperative Thought process: Normal thought process present Immunizations Boostrix Tdap 2.5 Lf unit-8 mcg-5 Lf/0.5 mL intramuscular syringe Performing Provider: Vin Hernandez CNP Performing Location[place] [facility] Administered by: Ainsley Hooper RN on 07/07/25 15:38 Dose Route Admin Location Dispensed Lot Number Expiration Date NDC Shoe Shiner 0.5 mL IM Left Deltoid 0.5 mL [id number] 09/09/27 05059-499-78 [place] Total Dispensed Waste 0.5 mL 0 % VIS Given Date VIS Provided VIS Publication Date 07/07/25 Single Vaccine 21 Eligibility Eligibility Date Funding Source Not [facility] Eligible 07/07/25 Private Coding Level of Care Code Est Pt Prev Care 40-64y(62010) Diagnoses Normal physical examination, routine Z00.00 High blood pressure I10 Hyperlipidemia E78.5 Skin cancer screening Z12.83 Eye exam, routine Z01.00 Morbid obesity with BMI of 40.0-44.9, adult E66.01; Z68.41 Additional Codes JANICE-7 Assessment Billing - JANICE-7 Assessment Tool: JANICE-7 Assessment 88681 ([id number]) PHQ-9 - 59099 - PHQ-9 Billing: Yes ([id number]) Assessment & Plan Assessment & Plan (1) Normal physical examination, routine: Code(s): Z00.00 - Encounter for general adult medical examination without abnormal findings Category: Medical Plan: No significant functional limitations noted. Continue current treatment regimen. Routine exercise encouraged. Follow-up in 3 months for hypertension and hyperlipidemia. Return sooner with symptoms or concerns. Verbalized understanding and agreed with the plan. (2) High blood pressure: Code(s): I10 - Essential (primary) hypertension Category: Medical Plan: Blood pressure is 133/60, within goal of less than 140/90. Continue current treatment regimen. Low-sodium diet encouraged. Perform fasting lipid panel blood work before next visit. Follow-up in 3 months. Verbalized understanding and agreed with the plan. (3) Hyperlipidemia: Code(s): E78.5 - Hyperlipidemia, unspecified Category: Medical Plan: Recent total cholesterol and LDL levels are elevated, 206 and 149 respectively; previous levels were 209 and 140 respectively. HDL level is slightly low, 38. He will continue with healthy lifestyle changes. Advised to limit foods high in saturated fat and avoid foods high in trans fat. Routine exercise encouraged. Fast for 10-12 hours, may drink water, and perform lipid panel blood work 2-3 days before next visit. Follow-up in 3 months. Verbalized understanding and agreed with the plan. (4) Skin cancer screening: Code(s): Z12.83 - Encounter for screening for malignant neoplasm of skin Category: Medical Plan: Referred to [facility]. (5) Eye exam, routine: Code(s): Z01.00 - Encounter for examination of eyes and vision without abnormal findings Category: Medical Plan: Last eye exam was several years ago. Referred to Ophthalmology for routine eye exam. (6) Morbid obesity with BMI of 40.0-44.9, adult: Code(s): E66.01 - Morbid (severe) obesity due to excess calories; Z68.41 - Body mass index [BMI] 40.0-44.9, adult Category: Medical Plan: He currently weighs 263 lb, BMI is 42.4. He has been doing weight watcher for the past 40 days and has lost 15 lbs. Healthy diet and routine exercise encouraged. Follow-up as needed. Verbalized understanding and agreed with the plan. Orders: Orders TDaP Immunization Today Z23 - Encounter for immunization Lipid Panel 3 Months E78.5 - Hyperlipidemia, unspecified Referrals Ophthalmology Referral Z01.00 - Encounter for examination of eyes and vision without abnormal findings Dermatology Referral Z12.83 - Encounter for screening for malignant neoplasm of skin Scribe Plan - Not visible on output: Last eye exam was several years ago. Referred to Ophthalmology for routine eye exam.
[2025-07-07 15:00] VITALS: BP 133/60; PULSE 60; RESP 16; TEMP 36.6; O2SAT 96; BMI 42.4
== END 2025-07-07 15:38 | disposition home or self-care (01) ==
LOC: HO.HMCFM 14:52
PROVIDERS: PCP Nurse Practitioner Family; Visit Provider Nurse Practitioner Family
DX: Z00.00 Encounter for general adult medical examination without abnormal findings (principal); I10 Essential (primary) hypertension; E66.01 Morbid (severe) obesity due to excess calories; Z68.41 Body mass index [BMI] 40.0-44.9, adult; E78.5 Hyperlipidemia, unspecified; Z12.83 Encounter for screening for malignant neoplasm of skin; Z01.00 Encounter for examination of eyes and vision without abnormal findings; Z23 Encounter for immunization

== ENCOUNTER → 2025-07-07 14:51 | Outpatient (BNVA) | payer OTHER, SELFPAY | PROVIDERS: PCP Nurse Practitioner Family; Visit Provider Nurse Practitioner Family | DX: Z00.00 Encounter for general adult medical examination without abnormal findings (principal); I10 Essential (primary) hypertension; E78.5 Hyperlipidemia, unspecified; E66.01 Morbid (severe) obesity due to excess calories; Z23 Encounter for immunization; Z68.41 Body mass index [BMI] 40.0-44.9, adult | CPT/HCPCS: 90471; 90715; 96127 ==